=== PATIENT | female | born 1940 | race Caucasian/White ===

== ENCOUNTER → 2017-09-22 | Outpatient (CLI) | payer MEDICARE, OTHER ==
[~2017-09-22] MED LIST: AMLO-96 PO; AMLO2.5T74 PO; ASPI-1471 PO; FLU60SYR30 IM ONLY; METO25TA23 PO; OMEG-109 PO; PITA2TAB PO; TRIA10.8 NS; UBID100C9 PO
== END ==
LOC: LAB 11:27
PROVIDERS: ATTEND Surgery
DX: L85.9 Epidermal thickening, unspecified (principal)
CPT/HCPCS: 88305

== ENCOUNTER 2017-10-15 13:29 | Outpatient (RCR) | payer MEDICARE, OTHER ==
[2017-10-14 09:54] LABS: PLATELET COUNT, AUTOMATED 206 K/uL (150-450)
[2017-10-14 09:55] VITALS: BP 140/82
--- NOTE | 2017-10-15 13:06 | ONC Progress Note - NP.Halsey ---
Patient History Date of Service Oct 15, 2017 Reason For Visit/HPI Patient is a 77-year-old female who moved to [place] from [place] on 2016. 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 She has not been phlebotomized since she has moved to [place]. Previous cut off for phlebotomy was a hematocrit greater than 45%. Patient reports that she is having some increased shortness of breath related to exercise with activity and headaches as she wakes in the morning occasionally.She has experienced this since she moved from a lower altitude to a higher altitude. Patient previously was on oxygen therapy at night and then reports that approximately 2 years ago a repeat sleep study was completed and she no longer qualified for oxygen. Patient is interested in a repeat sleep study to see if she would qualify for night oxygen therapy. Patient reports that she has some joint aches in the left hip and left foot after exercising at the [facility]. She is using cold packs and Aleve and her symptoms are improving. She has fatigue which she rates an 8 out of 10 but believes that most of this is related to the discomfort in her left leg and hip. She denies any cough, sinus drainage, nausea or vomiting or bowel changes. Problem List (1) Erythrocytosis Oncology History Patient moved to [place] from [place] on February 28, 2017. She was found to have erythrocytosis when she was in [place]. Patient followed with an oncologist and as per patient she had a JAK2 mutation gene test done which came back negative. 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 Erythropoietin level was 10, within the normal range. She is also complaining of TIA in the past. She has also hypertension and hypercholesterolemia, but other than that her medical history is insignificant. She was started on a baby aspirin for her TIA. Medical History Family History: Diabetes mellitus (DM) MOTHER, , Age:80 FH: HTN (hypertension) MOTHER, , Age:80 FH: heart failure MOTHER, , Age:80 FH: multiple sclerosis FATHER, , Age:72 FH: pneumonia FATHER, , Age:72 FH: stroke MOTHER, , Age:80 TIAs MOTHER, , Age:80 Psychosocial History Social History The patient is a . She has three children. One of her daughters lives in [place], [place]. 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 She is a never smoker. She denies any abuse of alcohol or illicit drugs. Smoking History: No Smoking Status: Never Smoker Exposure to Second Hand Smoke?: Yes Medications and Allergies Active Scripts Amlodipine Besylate (AMLODIPINE BESYLATE) 2.5 Mg Tablet, 1 TAB PO QDAY, #90 TAB 0 Refills Prov:DANIEL HOLLOWAY MD 10/13/17 Metoprolol Succinate (METOPROLOL SUCCINATE) 25 Mg Tab.er.24h, 1 TAB PO QDAY, # 90 TAB Prov:DANIEL HOLLOWAY MD 10/13/17 Pitavastatin Calcium (LIVALO) 2 Mg Tablet, 1 TAB PO DAILY, #90 TAB 3 Refills Prov:DANIEL HOLLOWAY MD 04/14/17 Reported Medications Multivitamin With Minerals (MULTIPLE VITAMIN) 1 Each Tablet, 1 EACH PO DAILY, TAB 10/15/17 Vit C/Mell Ac/Lut/Copper/Znox (PRESERVISION LUTEIN SOFTGEL) 1 Each Capsule, 1 EACH PO DAILY, CAPSULE 10/15/17 Vit A/Vit C/Vit E/Zinc/Copper (PRESERVISION AREDS SOFTGEL) 1 Each Capsule, 1 EACH PO BID, CAPSULE 10/13/17 Ubidecarenone (CO Q-10) 100 Mg Capsule, 1 CAP PO QDAY, CAPSULE 07/14/17 Triamcinolone Acetonide (Nasacort) 10.8 Ml [place], 2 SPRAYS NS DAILY 03/26/17 [place]-3/Dha/Epa/Fish Oil (OMEGAMINT FISH OIL 750 MG SFGL) 1 Each Capsule, 1 CAP PO DAILY, CAPSULE 03/26/17 Aspirin (ASPIR 81) 81 Mg Tablet., 1 TAB PO QDAY, TAB 03/26/17 Allergies: Coded Allergies: Ulwmzpp-Ukw-Jpz Reductase Inhibitor (Verified Allergy, Unknown, GI DISTRESS, 03/26/17) myalgias codeine (Verified Allergy, Unknown, MENTAL STATUS CHANGES, 03/26/17) lisinopril (Verified Allergy, Unknown, 03/26/17) cough milk (Verified Allergy, Unknown, UNKNOWN, 03/26/17) Review of System/Physical Exam Review of Systems All Systems Reviewed/Normal: Yes, Except as Noted Respiratory: Positive for Shortness of Breath Hematologic: Positive for Fatigue Musculoskeletal: Positive for Muscle Pain, Positive for Joint Pain, Positive for Other (reported discomfort in the left greater toe. Previously noted to have edema but this is resolved. Patient has been using ice and took Aleve yesterday) Physical Exam Vital Signs Temperature: 98.2 Pulse: 82 BP Systolic: 140 BP Diastolic: 82 Respiratory Rate: 16 O2 SAT: 93 O2 Delivery: Height (inches) 65.50 Weight lb: Weight oz: Weight Kg (Av): Pain: 0 ECOG Score: 1 General: Stable, Well Developed, Well Nourished, Not In Acute Distress HEENT: No Trauma Neck: Supple Lungs: Clear to Auscultation Heart: Regular Rate, Regular Rhythm, No Gallops Abdomen: Soft and Nontender, No Hepatosplenomegaly Extremities: No Cyanosis, No Clubbing, No Edema, Other (mild erythema in the left foot noted between the greater toe. No tenderness with palpation.) Psychiatric: Mood appears normal, Affect appears normal Skin: No Skin Rashes, No Bruising, No Purpura Diagnostic Studies Diagnostic Studies Laboratory Other risks Jules Hoffman level is currently pending Laboratory Tests 10/14/17 09:47 Laboratory Tests 10/14/17 09:47: White Blood Count 7.1, Red Blood Count 5.27, Hemoglobin 17.2, Hematocrit 48.8, Mean Corpuscular Volume 92.6, Mean Corpuscular Hemoglobin 32.7, Mean Corpuscular Hemoglobin Concent 35.3, Red Cell Distribution Width 14.1, Platelet Count 206, Mean Platelet Volume 7.9, Neutrophils (%) (Auto) 64.3, Lymphocytes (% ) (Auto) 22.6, Monocytes (%) (Auto) 7.6, Eosinophils (%) (Auto) 3.2, Basophils ( %) (Auto) 2.3, Nucleated RBC Relative Count (auto) 0.1, Neutrophils # (Auto) 4.6 , Lymphocytes # (Auto) 1.6, Monocytes # (Auto) 0.5, Eosinophils # (Auto) 0.2, Basophils # (Auto) 0.2, Nucleated RBC Absolute Count (auto) 0.00 Assessment and Plan Assessment & Plan 1. Erythrocytosis could be secondary given that her erythropoietin level was previously normal at 10. Today's level is currently pending Her JAK2 mutation for V617F mutation and Exon 12 mutation came back negative. Her last hematocrit was 51.5% when patient consulted with Dr. Barba. He plans to phlebotomize if the hematocrit is above 55%. Today's level is 48.8. There is no indication for phlebotomy today. She will be seen every three months with a CBC. Labs were reviewed in detail with patient today. 2. Hypertension, on treatment. 3. Hypercholesterolemia, on treatment. 4. History of transient ischemic attack on baby aspirin. 5. Prior history of oxygen therapy at night, discontinued 2 years ago. Since then patient has moved to a higher altitude and his having mild shortness of breath and headaches when she wakes in the morning. She is interested in having the sleep study completed for further evaluation of oxygen therapy need. Patient 's hematocrit of 48.8 may also improve as this could be a partial cause of secondary erythrocytosis. I will visit with patient after sleep study is completed. PLAN 1. Continue followup after sleep study 2. Patient to return in three months with CBC. 3. Consider phlebotomy if the hematocrit is above 55%. 4. Continue baby aspirin 81 mg daily. 5. Patient is to contact us for any new concerns or complaints. I personally spent a total of 30 minutes. Of that 25 minutes was counseling/ coordination of patient's care. See my note above for details. Copies to: DANIEL HOLLOWAY MD, NANCY J [employer]-BC, ONC Oct 15, 2017 13:06
[~2017-10-15 13:29] MED LIST changes: +VIT1CAPS34 PO
[2017-10-15 13:43] VITALS: BP 118/74
[2017-10-15] MEDS ORDERED: MULT-1335 PO (13:49)
[2017-10-15] MEDS ORDERED: VIT1CAPS39 PO (13:49)
[2017-10-19] MEDS ORDERED: METO25TA23 PO (09:48)
[2017-10-27] MEDS ORDERED: OXYGENHOME INH (08:56)
== END 2017-11-25 15:03 | disposition home or self-care (01) ==
LOC: ONC 13:29
PROVIDERS: ATTEND Internal Medicine Hematology
DX: D75.1 Secondary polycythemia (principal); I10 Essential (primary) hypertension; E78.00 Pure hypercholesterolemia, unspecified; Z86.73 Personal history of transient ischemic attack (TIA), and cerebral infarction without residual deficits; R53.83 Other fatigue; R06.02 Shortness of breath; Z79.899 Other long term (current) drug therapy; Z79.82 Long term (current) use of aspirin
CPT/HCPCS: 36415; 82668; 85025; G0463; 99212

== ENCOUNTER 2018-02-18 14:30 | Outpatient (RCR) | payer MEDICARE, OTHER ==
[~2018-02-18 14:30] MED LIST changes: +ALBU8.5H IH; +BENZ200C15 PO; +MULT-1335 PO; +OXYGENHOME INH; +ROS10 PO; +VIT1CAPS39 PO
[2018-02-18 14:33] VITALS: BP 119/73
[2018-02-18 14:44] LABS: PLATELET COUNT, AUTOMATED 206 K/uL (150-450)
--- NOTE | 2018-02-18 17:24 | Oncology Note ---
EVALUATION~DATE~& TIME: 02/18/18 at 1540 PRIMARY CARE PHYSICIAN: Chief complaint: Cough and fevers at home x 4 days DIAGNOSIS: Atypical PNA ( presumed) HEM/ONC History Mrs. gillian Hankins is a 77-year-old female who has Erythrocytosis. moved to [place] from [place] on February 28, 2017. The patient was found to have erythrocytosis when she was in [place]. Patient has been referred to the oncologist and as per patient she had a JAK2 mutation gene test done which came back negative. She is also complaining of TIA in the past. She has also hypertension and hypercholesterolemia, but other than that her medical history is insignificant. She wants to establish care for her erythrocytosis. She is currently taking a baby aspirin for her TIA. JAK2 mutation Exon 12 was negative when it was done in [place]. 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 Erythropoietin level was 10, within the normal range. HPI Mrs. Gillian Hankins is a 77-year-old female who has Erythrocytosis. Patient presented to the cancer center for management of her erythrocytosis, appearing ill looking, temp of 99.8F, Pulse of 91. patient reports that she has been having fevers, productive cough with yellow and white sputum since 02/15 . She reports minimal oral intake, and fatigue. Patient was started on nighttime 2L Oxygen supplement in October 2017. She reports that the supplemental oxygen has made her feel better.Patient denies cardiac related chest pain, no abdominal pain, no changes in bowel and bladder pattern, or recent hospitalization. significant past medical history of Hypertension, Hypercholesterolemia, TIA in 2014.. Diagnostic tests & Reports Reviewed on [employer] WBC 7.7; Hbg 16.7; Hct; 48.1; Plt;206 TIBC 246; T.Bili 1.4 PAST MEDICAL HISTORY 1. Erythrocytosis. 2. Hypercholesterolemia. 3. Hypertension. 4. TIA. PAST SURGICAL HISTORY 1. Tonsillectomy. 2. Tubal ligation. 3. Hysterectomy. 4. Bilateral cataract surgery. 5. Resection of melanoma from the back of the neck. FAMILY HISTORY Father had skin cancer. SOCIAL HISTORY The patient is a . She has three children. One of her daughters lives in [place], [place]. 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 She never smoke. She denies any abuse of alcohol or illicit drugs. CURRENT MEDICATIONS 1. Nasacort 10.8 mL spray, two sprays daily. 2. [place]-3/fish oil/DHA-EPA. 3. OmegaMint fish oil 750 mg soft gel one daily. 4. Aspirin 81 mg daily. 5. Metoprolol 25 mg daily. 6. Amlodipine 5 mg daily. 7. Livalo 2 mg tablet daily. ALLERGIES STATINS which cause muscle pain and stomach pain, LISINOPRIL which causes cough , CODEINE which makes her dopey. Review of System CONSTITUTION: + fevers+ poor oral intake ,+fatigue EYES: No blurred vision, no double vision ENT: no mouth soreness, trouble swallowing, neck masses RESPIRATORY:+ coughing CARDIOVASCULAR: Denies cardiac type chest pain, palpitations, leg edema GI: denies trouble swallowing, indigestion, abdominal pain, diarrhea, constipation, : No blood in the urine, no urinary urgency/frequency, no dysuria, no MUSCULOSKELETAL: + muscle aches, NEURO: denies headaches, dizziness, neuropathy, focal weakness SKIN: denies bruising, rashes, changing or suspicious lesions, HEMATOLOGY: denies spontaneous bleeding, denies non-palpable nodes PSYCH: denies mood changes, depression, anxiety Physical Exam Vital Signs Temperature: 99.8 Pulse: 91 BP Systolic: 119 BP Diastolic: 73 Respiratory Rate: O2 SAT: 89% RA ; 95% nasal canula 2L O2 Delivery: Height (inches) Weight lb: Weight oz: Weight Kg (Av): Pain: 0 PERFORMANCE STATUS: ECOG O- fully active, able to carry on all pre-disease performance w/o restriction GENERAL: ill looking ORAL: mucosa moist without lesions, pharynx not injected EYES: no icterus, no pale conjunctivae, EOMI, PERRLA NECK: supple, no masses, no palpable lymph nodes LUNGS: diminished, auscultation bilaterally, fine crackles Right lower lobe CVS: regular rate, rhythm, nl s1, s2, no murmurs ABD: normal bowel sounds, soft non tender, non-distended, no hepatomegaly, no splenomegaly, no masses EXTREMITIES: no edema, no cyanosis NEURO: alert, appropriate, motor grossly normal, sensory grossly non focal, and cranial nerves grossly intact NODES: no cervical, supraclavicular, axillary, inguinal adenopathy SKIN: no ecchymosis, petechiae, no open wounds, no itchiness. PSYCH: normal mood and affect, good judgment and insight. Assessment & Plan ASSESSMENT Mrs. Gillian Hankins is a 77-year-old female who has Erythrocytosis. HTN, Hyperlipidemia and history of TIA in 2014. 1. Erythrocytosis was thought to be secondary in nature given that her erythropoietin level value was normal at 10, and her JAK2 mutation for V617F mutation and Exon 12 mutation came back negative. Labs were reviewed and hematocrit is 48.1% today. 2. presumed Atypical PNA- Patient to be transferred to the ER for work up and evaluation. SBAR given to Bethany DIETRICH. 3. Hypertension, on treatment. 4. Hypercholesterolemia, on treatment. 5. History of transient ischemic attack on baby aspirin. PLAN 1. Consider Therapeutic Phlebotomy with a Hematocrit >/=50% 2. Patient will return for follow-up after Dc from ER 3. Continue baby aspirin 81 mg daily. 4. will check Erythropoietin levels 5. Patient is to contact us for any new concerns or complaints. TIME SPENT: 30 minutes > 25 minutes includes but not limited to discussion, counselling and co-ordination~ of care. Discussion with other health care providers, record review, review of lab work, diagnostic tests. Thank you for the opportunity to be involved in the care of Billing Level: 4 Return sick visit MARGRET SNOWDEN, ONC Feb 18, 2018 17:24
[2018-02-18] MEDS ORDERED: PRED20TA6 PO (18:01)
[2018-02-18] MEDS ORDERED: AZIT-1 PO (18:01)
== END 2018-02-19 09:31 | disposition home or self-care (01) ==
LOC: SPU 14:30
PROVIDERS: ATTEND Internal Medicine Hematology
DX: D75.1 Secondary polycythemia (principal); I10 Essential (primary) hypertension; E78.00 Pure hypercholesterolemia, unspecified; Z86.73 Personal history of transient ischemic attack (TIA), and cerebral infarction without residual deficits; R53.83 Other fatigue; Z79.899 Other long term (current) drug therapy; Z79.82 Long term (current) use of aspirin; E78.5 Hyperlipidemia, unspecified; R05 Cough
CPT/HCPCS: 36415; 85025; G0463; 99212

== ENCOUNTER 2018-02-18 16:28 | Emergency (ER) | payer MEDICARE, OTHER ==
--- NOTE | 2018-02-18 16:35 | ER Report ---
History and Physical Time Seen By MD: 16:35 HPI/ROS CHIEF COMPLAINT: Cough, shortness of breath, sputum change HISTORY OF PRESENT ILLNESS: Patient is a 77-year-old female here with complaints of cough, sputum change, shortness breath for the past several days. Patient was seen today in oncology clinic where she was evaluated for erythrocytosis and was sent to the emergency Department due to concern for pneumonia. Labs were completed in clinic and were found to be unremarkable. The patient did not have a leukocytosis. At baseline, the patient is on oxygen at night only however was placed on supplemental oxygen due to oxygen saturations in the mid 80s. Patient denies prior history of underlying lung disease however she does report using an old inhaler with some relief of symptoms. Patient is afebrile at time of evaluation for she reports that she usually has a low temperature. Patient does have an intermittent headache, blurred vision which is not new for this patient. Denies hematuria, melena, chest pain. REVIEW OF SYSTEMS: Respiratory: + cough, + dyspnea. Cardiovascular: No chest pain, no palpitations. Gastrointestinal: No vomiting, no abdominal pain. Musculoskeletal: No back pain. Neuro: + intermittent baseline headache and blurry vision Allergies: Coded Allergies: Ohsqlwl-Deo-Jas Reductase Inhibitor (Verified Allergy, Unknown, GI DISTRESS, 02/18/18) myalgias codeine (Verified Allergy, Unknown, MENTAL STATUS CHANGES, 02/18/18) lisinopril (Verified Allergy, Unknown, 02/18/18) cough milk (Verified Allergy, Unknown, UNKNOWN, 02/18/18) Home Meds Active Scripts Prednisone (PREDNISONE) 20 Mg Tablet, 40 MG PO QDAY for 4 Days, #8 TAB Prov:MANISH CHINO DO 02/18/18 Azithromycin (ZITHROMAX) 250 Mg Tablet, 1 TAB PO QDAY for 4 Days, #4 TAB Prov:MANISH CHINO S DO 02/18/18 Metoprolol Succinate (METOPROLOL SUCCINATE) 25 Mg Tab.er.24h, 1 TAB PO BID, #90 TAB 3 Refills Prov:DANIEL HOLLOWAY MD 01/12/18 Benzonatate (BENZONATATE) 200 Mg Capsule, 1 CAP PO TID Y for cough, #15 CAP 0 Refills Prov:DANIEL HOLLOWAY MD 12/02/17 Albuterol Sulfate 90 Mcg/Act (PROAIR HFA 90 MCG/ACT) 8.5 Gm Hfa.aer.ad, 2 PUFF IH Q4-6H Y for cough, tightness in chest, #1 INHALER 0 Refills Prov:DANIEL HOLLOWAY MD 12/02/17 Rosuvastatin Calcium (CRESTOR) 10 Mg Tab, 1 TAB PO QDAY, #90 TAB 3 Refills Prov:DANIEL HOLLOWAY MD 12/02/17 Amlodipine Besylate (AMLODIPINE BESYLATE) 2.5 Mg Tablet, 1 TAB PO QDAY, #90 TAB 0 Refills Prov:DANIEL HOLLOWAY MD 10/13/17 Reported Medications Oxygen (OXYGEN) Inha, 2 L INH HS 10/27/17 Multivitamin With Minerals (MULTIPLE VITAMIN) 1 Each Tablet, 1 TAB PO QDAY 10/15/17 Vit A/Vit C/Vit E/Zinc/Copper (PRESERVISION AREDS SOFTGEL) 1 Each Capsule, 1 CAP PO BID 10/13/17 Ubidecarenone (CO Q-10) 100 Mg Capsule, 1 CAP PO QDAY 07/14/17 [place]-3/Dha/Epa/Fish Oil (OMEGAMINT FISH OIL 750 MG SFGL) 1 Each Capsule, 1 CAP PO QDAY 03/26/17 Aspirin (ASPIR 81) 81 Mg Tablet., 1 TAB PO QDAY 03/26/17 Past Medical/Surgical History TIA, irregular heartbeat, hypertension, hyperlipidemia, oxygen dependent at night, erythrocytosis Hx Smoking: No Smoking Status: Never Smoker Exposure to Second Hand Smoke?: Yes Constitutional Vital Sign - Last 24 Hours 02/18/18 02/18/18 02/18/18 02/18/18 16:32 16:50 16:50 16:56 Temp 98.0 Pulse 88 73 Resp 22 18 B/P (MAP) 142/86 Pulse Ox 92 94 96 O2 Delivery Nasal Cannula Nasal Cannula Nasal Cannula O2 Flow Rate 1.5 1.0 02/18/18 02/18/18 16:56 18:25 Pulse 78 78 Resp 18 18 B/P (MAP) 136/80 (98) Pulse Ox 91 O2 Delivery Room Air Physical Exam General Appearance: The patient is alert, has no immediate need for airway protection and no current signs of toxicity. NAD Eyes: Pupils equal and round no injection. Respiratory: Chest is non tender, lungs are clear to auscultation. Cardiac: regular rate and irregular rhythm Gastrointestinal: Abdomen is soft and non tender, no masses, bowel sounds normal. Musculoskeletal: Neck: Neck is supple and non tender. Extremities have full range of motion and are non tender. Skin: No rashes or lesions. DIFFERENTIAL DIAGNOSIS: After history and physical exam differential diagnosis was considered for shortness of breath including but not limited to pulmonary infectious process, COPD, asthma, pulmonary embolus and congestive heart failure. Medical Decision Making EKG/Imaging Imaging 2 VIEWS CHEST INDICATION: Shortness of breath. COMPARISON: None available FINDINGS: Cardiomediastinal silhouette and pulmonary vessels within normal limits. Electronic device overlying the anterior chest. There is no focal infiltrate or lobar consolidation. There is no pneumothorax or pleural effusion. No nodule. Upper abdomen is unremarkable. No acute bony abnormality. IMPRESSION: 1. No acute cardiopulmonary process. ED Course/Re-evaluation ED Course Patient is a 77-year-old female here for complaints of shortness breath, cough for the past several days. She was sent from clinic for evaluation of suspected pneumonia. Patient was placed on supplemental oxygen due to low oxygen sats in the mid 80s. She does utilize oxygen at nighttime only. Patient was given a nebulizer treatment. X-ray imaging showed no acute consolidation. Due to SOB, increased oxygen demand and response to nebulizer therapy, decision was made to treat the patient for community acquired pneumonia. Patient was given a dose of prednisone and azithromycin and scripts for both for 4 days. She was well- appearing at time of discharge and in no acute distress. Patient was advised to follow-up with her PCP in the next several days. Decision to Disposition Date: Feb 18, 2018 Decision to Disposition Time: 18:02 Depart Departure Latest Vital Signs Vital Signs Date Time Temp Pulse Resp B/P (MAP) Pulse Ox O2 Delivery O2 Flow Rate FiO2 02/18/18 18:25 78 18 136/80 (98) 91 Room Air 02/18/18 16:56 1.0 02/18/18 16:32 98.0 Impression: Primary Impression: Pneumonia Condition: Improved Disposition: HOME OR SELF-CARE Referrals: DANIEL HOLLOWAY MD (PCP) New Scripts Prednisone (PREDNISONE) 20 Mg Tablet 40 MG PO QDAY for 4 Days, #8 TAB Prov: MANISH CHINO DO 02/18/18 Azithromycin (ZITHROMAX) 250 Mg Tablet 1 TAB PO QDAY for 4 Days, #4 TAB Prov: MANISH CHINO DO 02/18/18 Patient Instructions: Community Acquired Pneumonia (ED) Additional Instructions: Please take 2 tablets of prednisone daily for the next 4 days. Please take one tablet of azithromycin daily for the next 4 days. Please take your inhaler every 4-6 hours 2 puffs as needed for shortness of breath. Please use your oxygen to maintain oxygen levels of greater than 88%. Please follow up with your family doctor in the next 2 days. Please return promptly if you develop worsening shortness breath, cough, fevers, chest pain. MANISH CHINO DO Feb 18, 2018 16:35
[2018-02-18] MEDS ORDERED: ALBUTEROL 2.5 MG/3 ML NEB NEB ONE (16:45)
[2018-02-18] MEDS ORDERED: AZITHROMYCIN 250 MG TAB PO ONE (17:55)
[2018-02-18] MEDS ORDERED: predniSONE 20 MG TAB PO ONE (17:55)
[2018-02-18] MEDS ORDERED: PRED20TA6 PO (18:01)
[2018-02-18] MEDS ORDERED: AZIT-1 PO (18:01)
--- NOTE | 2018-02-18 18:02 | RADIOLOGY IMAGING REPORT ---
FACILITY: [facility] PATIENT NAME: Nhi Chua : 1940 MR: [id number] V: [id number] EXAM DATE: ORDERING PHYSICIAN: MANISH CHINO TECHNOLOGIST: Location: [facility] Patient: Nhi Chua : 1940 Visit/Account:[id number] Date of Sevice: 02/18/2018 2 VIEWS CHEST INDICATION: Shortness of breath. COMPARISON: None available FINDINGS: Cardiomediastinal silhouette and pulmonary vessels within normal limits. Electronic device overlying the anterior chest. There is no focal infiltrate or lobar consolidation. There is no pneumothorax or pleural effusion. No nodule. Upper abdomen is unremarkable. No acute bony abnormality. IMPRESSION: 1. No acute cardiopulmonary process. Report Dictated By: Campbell Duran at 02/18/2018 5:56 PM Report E-Signed By: Campbell Duran at 02/18/2018 5:57 PM WSN:[id number]
[2018-02-18 18:25] VITALS: BP 136/80
== END 2018-02-18 18:27 | disposition home or self-care (01) ==
LOC: ER 16:30
DX: J18.9 Pneumonia, unspecified organism (principal)
CPT/HCPCS: 71046; 94640; 99283; J7512; J7613; Q0144

== ENCOUNTER → 2018-03-09 | Outpatient (CLI) | payer MEDICARE, OTHER ==
[~2018-03-09] MED LIST changes: +AZIT-1 PO; +FLUT16SP19 NS; +PRED20TA6 PO
--- NOTE | 2018-03-09 15:22 | RADIOLOGY IMAGING REPORT ---
FACILITY: [facility] [place] PATIENT NAME: Nhi Chua : 1940 MR: [id number] V: [id number] EXAM DATE: ORDERING PHYSICIAN: DANIEL HOLLOWAY TECHNOLOGIST: Location: [facility] Patient: Nhi Chua : 1940 Visit/Account:[id number] Date of Sevice: 03/09/2018 DEXA Scan Clinical history: screening. Comparison: None. LUMBAR SPINE: The bone mineral density (BMD) measured from L1-L4 correlates with a Z-score of 0.8 and a T-score of -0.9 which is within normal range as defined by the World Health Organization. The corresponding ris k of fracture in the lumbar spine is not increased compared with a young adult reference population. HIP: Bone mineral density (BMD) measured in the Left total hip region correlates with a Z-score of 0.8 and a T-score of -0.9. The T-score of the femoral neck is -1.5. The lower of the two T scores is osteopenic which is defined as defined by the World Health Organization. The corresponding risk of fracture in the hip is is approximately double compared wit h a young adult reference population. Bone mineral density (BMD) measured in the Left Femoral Neck region measures 0.826 g/cm?. Impression: 1. Lumbar spine: Within normal range. 2. Left Total Hip: Osteopenic. The next DEXA scan of this patient should include the following sites: L1-L4 and Left hip. FRAX? WHO Fracture Risk Assessment Tool link: <http://www.shef.ac.uk/FRAX/tool.jsp?locationValue=9> PLEASE NOTE: 1) The World Health Organization defines low BMD as follows: T-score Normal > -1 Osteopenia < -1 and > -2.5 Osteoporosis < -2.5 without fractures Established osteoporosis < -2.5 with fractures 2) In general, you may wish to consider: Diagnosis Treatment Follow-up DEXA Normal BMD Prevention 2-3 years Osteopenia Prevention/therapy 1-2 years Osteoporosis Therapy Yearly 3) Fracture risk estimated from the T-score is more accurate for vertebral fractures (often spontane ous) than for hip fractures. Report Dictated By: Corky Willett MD at 03/09/2018 3:16 PM Report E-Signed By: Corky Willett MD at 03/09/2018 3:18 PM WSN:[id number]
--- NOTE | 2018-03-18 16:18 | RADIOLOGY IMAGING REPORT ---
[facility] PATIENT NAME: LISA GREGORY : [id number] MR: [id number] V: [id number] EXAM DATE: [id number] ORDERING PHYSICIAN: DANIEL HOLLOWAY TECHNOLOGIST: Ayse Pelaez PROCEDURE:BILATERAL DIGITAL SCREENING MAMMOGRAM WITH CAD ASSISTED INTERPRETATION & 3D TOMOSYNTHESIS COMPARISON:Prior mammograms 12/29/16, 10/02/15. INDICATIONS:SCREENING FINDINGS: Breast parenchyma is heterogeneously dense. There is a stable ovoid benign appearing mass in the anterior Right breast. Benign appearing vascular & other calcifications on both sides. No new mammographic finding concerning for malignancy. DIAGNOSTIC CATEGORY 2-BENIGN FINDING. RECOMMENDATIONS: ROUTINE MAMMOGRAM AND CLINICAL EVALUATION IN 1 YEAR. IMPRESSION: BIRADS 2: Benign finding. Dictated by: Shawn Light on 03/18/2018 at 8:50 Transcribed by: CHRISTAL on 03/18/2018 at 15:28 Approved by: Shawn Light on 03/18/2018 at 16:17 [facility]
== END ==
LOC: MAMO 07:04
PROVIDERS: ATTEND Internal Medicine
DX: Z13.820 Encounter for screening for osteoporosis (principal); Z12.31 Encounter for screening mammogram for malignant neoplasm of breast; Z78.0 Asymptomatic menopausal state; M81.0 Age-related osteoporosis without current pathological fracture; R92.1 Mammographic calcification found on diagnostic imaging of breast
CPT/HCPCS: 77063; 77067; 77080

== ENCOUNTER → 2018-03-11 | Outpatient (CLI) | payer MEDICARE, OTHER | LOC: LAB 09:16 | PROVIDERS: ATTEND Nurse Practitioner | DX: L81.4 Other melanin hyperpigmentation (principal) | CPT/HCPCS: 88305 ==

== ENCOUNTER 2018-03-19 13:28 | Outpatient (RCR) | payer MEDICARE, OTHER ==
[2018-03-19 13:36] VITALS: BP 135/71
--- NOTE | 2018-03-19 17:41 | ONCOLOGY FOLLOW UP NOTE ---
EVENT DATE: March 19, 2018 DIAGNOSES 1. Erythrocytosis. 2. Hypertension. 3. Hypercholesterolemia. 4. History of transient ischemic attack. CHIEF COMPLAINT Patient is here today for followup of her erythrocytosis. HEMATOLOGY HISTORY Patient is a 77-year-old female who moved to [place] from [place] on February 28, 2017. The patient was found to have erythrocytosis when she was in [place]. Patient has been referred to the oncologist and as per patient she had a JAK2 mutation gene test done which came back negative. She is also complaining of TIA in the past. She has also hypertension and hypercholesterolemia, but other than that her medical history is insignificant. She wants to establish care for her erythrocytosis. She is currently taking a baby aspirin for her TIA. JAK2 mutation Exon 12 was negative when it was done in [place]. 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 Erythropoietin level was 10, within the normal range. HISTORY OF PRESENT ILLNESS Patient is here today for followup of her erythrocytosis. She is using oxygen at home now. She is complaining of some nasal discharge, cough with expectoration and shortness of breath. She has muscle aches sometimes. She is weak, tired and fatigued sometimes. PAST MEDICAL HISTORY 1. Erythrocytosis. 2. Hypercholesterolemia. 3. Hypertension. 4. TIA. PAST SURGICAL HISTORY 1. Tonsillectomy. 2. Tubal ligation. 3. Hysterectomy. 4. Bilateral cataract surgery. 5. Resection of melanoma from the back of the neck. FAMILY HISTORY Father had skin cancer. SOCIAL HISTORY The patient is a . She has three children. One of her daughters lives in [place], [place]. 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 She is a never smoker. She denies any abuse of alcohol or illicit drugs. CURRENT MEDICATIONS 1. Nasacort 10.8 mL spray, two sprays daily. 2. [place]-3/fish oil/DHA-EPA. 3. OmegaMint fish oil 750 mg soft gel one daily. 4. Aspirin 81 mg daily. 5. Metoprolol 25 mg daily. 6. Amlodipine 5 mg daily. 7. Livalo 2 mg tablet daily. ALLERGIES STATINS which cause muscle pain and stomach pain, LISINOPRIL which causes cough , CODEINE which makes her dopey. REVIEW OF SYSTEMS CONSTITUTIONAL: No appetite or weight change. No fever, chills or sweating. No recent infection. HEENT: Ears: No tinnitus or hearing problem. Nose: She has nasal discharge. Throat: No sore throat or mouth ulcers. Eyes: No diplopia or visual changes. RESPIRATORY: She has cough with expectoration and shortness of breath. CARDIOVASCULAR: No chest pain, orthopnea, or paroxysmal nocturnal dyspnea (PND) . No edema. No palpitations. GASTROINTESTINAL: She has constipation. GENITOURINARY: No hematuria or dysuria. MUSCULOSKELETAL: She has muscle pain. NEUROLOGICAL: She has occasional headache. HEMATOLOGICAL: She is weak, tired and fatigued. PSYCHIATRIC: No anxiety or depression. PHYSICAL EXAMINATION GENERAL: Looks stable. Well-developed, well-nourished, and in no acute distress. VITAL SIGNS: Blood pressure 135/71, pulse 85 per minute, respirations 16 per minute, temperature 97, pulse ox 93% on room air. HEENT: Head: Atraumatic. No sinus tenderness to palpation. Eyes: No icterus or conjunctivitis. Mouth and throat: No oral thrush or mucositis. NECK: Supple. No cervical or supraclavicular lymphadenopathy. LUNGS: Clear to auscultation and percussion bilaterally. HEART: Regular rate and rhythm. No gallops, murmurs, clicks or rubs. ABDOMEN: Soft and lax. No tenderness. No hepatosplenomegaly. No masses. EXTREMITIES: No cyanosis, clubbing or edema. LYMPHATICS: No peripheral lymphadenopathy. NEUROLOGICAL: Conscious, alert and oriented times three. No focal motor or sensory deficits. PSYCHIATRIC: Mood and affect appear normal. SKIN: No skin rash, bruise or purpuric eruption. DIAGNOSTIC DATA CBC showed white count 7.7, hemoglobin 16.7, hematocrit 48.1, platelets 206, 000. ASSESSMENT 1. 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 Her current hematocrit is 48.1 which is improving gradually. Patient is using oxygen at home now and this could explain why her hematocrit is getting better currently. I am planning to repeat her CBC every three months. I will see her in six months and I will phlebotomize 500 mL of blood if the hematocrit is above 55%. 2. Hypertension, on treatment. 3. Hypercholesterolemia, on treatment. 4. History of transient ischemic attacks, on baby aspirin. PLAN 1. Continue followup. 2. Patient to return in six months with CBC. 3. Check CBC in three months. 4. Consider phlebotomy if hematocrit above 55%. 5. Continue baby aspirin 81 mg daily. 6. Patient is to contact us for any new concerns or complaints. ARACELI
[2018-03-25] MEDS ORDERED: METO25TA23 PO (11:26)
[2018-03-25] MEDS ORDERED: PITA2TAB PO (11:26)
[2018-03-25] MEDS ORDERED: CALC-864 PO (11:26)
== END 2018-03-25 13:58 | disposition home or self-care (01) ==
LOC: ONC 13:28
PROVIDERS: ATTEND Internal Medicine Hematology
DX: D75.1 Secondary polycythemia (principal); I10 Essential (primary) hypertension; E78.00 Pure hypercholesterolemia, unspecified; Z86.73 Personal history of transient ischemic attack (TIA), and cerebral infarction without residual deficits; R53.83 Other fatigue; R06.02 Shortness of breath; Z99.81 Dependence on supplemental oxygen; Z79.82 Long term (current) use of aspirin
CPT/HCPCS: 99212

== ENCOUNTER → 2018-08-06 | Outpatient (CLI) | payer MEDICARE, OTHER ==
[~2018-08-06] MED LIST changes: +AMLO-111 PO; -AMLO-96 PO; -AMLO2.5T74 PO; +AMLO2.5T76 PO; +CALC-864 PO
== END ==
LOC: RESP 03:17
PROVIDERS: ATTEND Internal Medicine
DX: E78.00 Pure hypercholesterolemia, unspecified (principal); I49.1 Atrial premature depolarization; I10 Essential (primary) hypertension
CPT/HCPCS: 93017

== ENCOUNTER → 2018-08-19 | Outpatient (RCR) | payer MEDICARE, OTHER ==
[2018-05-21 08:52] VITALS: BP 138/73
[2018-05-21 09:09] LABS: PLATELET COUNT, AUTOMATED 195 K/uL (150-450)
[2018-08-12 08:29] LABS: PLATELET COUNT, AUTOMATED 196 K/uL (150-450)
[2018-08-12 08:43] VITALS: BP 124/68
--- NOTE | 2018-08-19 22:07 | [facility] ONCOLOGY NOTE ---
EVENT DATE: August 19, 2018 DIAGNOSES 1. Erythrocytosis. 2. Hypertension. 3. Hypercholesterolemia. 4. History of transient ischemic attack. CHIEF COMPLAINT Patient is here today for followup of her erythrocytosis. HEMATOLOGY HISTORY Patient is a 78-year-old female who moved to [place] from [place] on February 28, 2017. The patient was found to have erythrocytosis when she was in [place]. Patient had been referred to an oncologist, and as per patient, she had a JAK2 mutation gene test done which came back negative. She is also complaining of TIA in the past. She has also hypertension and hypercholesterolemia, but other than that, her medical history is insignificant. She wants to establish care for her erythrocytosis. She is currently taking a baby aspirin for her TIA. JAK2 mutation exon 12 was negative when it was done in [place]. 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 Erythropoietin level was 10, within the normal range. HISTORY OF PRESENT ILLNESS Patient is here today for followup of her erythrocytosis. She is doing fine currently. She has some cough with expectoration and shortness of breath. She has alternating diarrhea and constipation. She has pain in her hips. She has occasional headache. She is weak, tired, and fatigued. PAST MEDICAL HISTORY 1. Erythrocytosis. 2. Hypercholesterolemia. 3. Hypertension. 4. TIA. PAST SURGICAL HISTORY 1. Tonsillectomy. 2. Tubal ligation. 3. Hysterectomy. 4. Bilateral cataract surgery. 5. Resection of melanoma from the back of the neck. FAMILY HISTORY Father had skin cancer. SOCIAL HISTORY The patient is a . She has three children. One of her daughters lives in [place], [place]. 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 She is a never smoker. She denies any abuse of alcohol or illicit drugs. CURRENT MEDICATIONS 1. Nasacort 10.8 mL spray, two sprays daily. 2. [place]-3/fish oil/DHA-EPA. 3. OmegaMint fish oil 750 mg soft gel one daily. 4. Aspirin 81 mg daily. 5. Metoprolol 25 mg daily. 6. Amlodipine 5 mg daily. 7. Livalo 2 mg tablet daily. ALLERGIES STATINS which cause muscle pain and stomach pain, LISINOPRIL which causes cough, CODEINE which makes her dopey. REVIEW OF SYSTEMS CONSTITUTIONAL: No appetite or weight change. No fever, chills, or sweating. No recent infection. HEENT: Ears: No tinnitus or hearing problem. Nose: No nasal discharge or epistaxis. Throat: No sore throat or mouth ulcers. Eyes: No diplopia or visual changes. RESPIRATORY: She has cough with expectoration and shortness of breath. No hemoptysis. CARDIOVASCULAR: No chest pain, orthopnea, or paroxysmal nocturnal dyspnea (PND). No edema. No palpitations. GASTROINTESTINAL: No nausea or vomiting. She has alternating diarrhea and constipation. No change in bowel movements. No heartburn or swallowing difficulties. No abdominal pain. No jaundice. No hematemesis, melena, or rectal bleeding. GENITOURINARY: No hematuria or dysuria. MUSCULOSKELETAL: She has pain in her hips. NEUROLOGICAL: No tingling or numbness in the hands or feet. She has occasional headache. No convulsions. HEMATOLOGIC/LYMPHATIC: No bleeding or easy bruising. She is weak, tired, and fatigued. No enlarged lymph nodes. SKIN: No skin rash or lumps. PSYCHIATRIC: No anxiety or depression. PHYSICAL EXAMINATION GENERAL: Looks stable. Well developed, well nourished, and in no acute distress. VITAL SIGNS: Pulse is 46 per minute, respirations 16 per minute, temperature 98.4, pulse ox 91]% on room air. HEENT: Head: Atraumatic. No sinus tenderness to palpation. Eyes: No icterus or conjunctivitis. Mouth and throat: No oral thrush or mucositis. NECK: Supple. No cervical or supraclavicular lymphadenopathy. LUNGS: Clear to auscultation and percussion bilaterally. HEART: Regular rate and rhythm. No gallops, murmurs, clicks, or rubs. ABDOMEN: Soft and lax. No tenderness. No hepatosplenomegaly. No masses. EXTREMITIES: No cyanosis, clubbing, or edema. LYMPHATICS: No peripheral lymphadenopathy. NEUROLOGICAL: Conscious, alert, and oriented times three. No focal motor or sensory deficits. PSYCHIATRIC: Mood and affect appear normal. SKIN: No skin rash, bruise, or purpuric eruption. DIAGNOSTIC DATA CBC showed white count 6.1, hemoglobin 17, hematocrit 49.6, platelets 196,000. ASSESSMENT 1. 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 Her current hematocrit is 49.6%. There is no indication for phlebotomy. I will consider phlebotomy if her hematocrit is above 55%. I am planning to see her again in six months with CBC at that time. 2. Hypertension, on treatment. 3. Hypercholesterolemia, on treatment. 4. History of transient ischemic attack, on baby aspirin. PLAN 1. Continue followup. 2. Patient to return in six months with CBC. 3. Consider phlebotomy if hematocrit above 55%. 4. Continue baby aspirin 81 mg daily. 5. Patient is to contact us for any new concern or complaints. [facility]
== END ==
LOC: ONC 05-21 07:34 → SPU 08-12 08:09 → ONC 15:34
PROVIDERS: ATTEND Internal Medicine Hematology
DX: D75.1 Secondary polycythemia (principal); I10 Essential (primary) hypertension; E78.00 Pure hypercholesterolemia, unspecified; Z86.73 Personal history of transient ischemic attack (TIA), and cerebral infarction without residual deficits; Z79.82 Long term (current) use of aspirin
CPT/HCPCS: 36415; 85025; G0463; 93350; 99212

== ENCOUNTER → 2018-09-24 | Outpatient (CLI) | payer MEDICARE, OTHER ==
[~2018-09-24] MED LIST changes: -AMLO-111 PO; +AMLO-125 PO; -AMLO2.5T76 PO; +AMLO2.5T78 PO; +OMEP-125 PO
== END ==
LOC: LAB 09:38
PROVIDERS: ATTEND Nurse Practitioner
DX: L43.9 Lichen planus, unspecified (principal)
CPT/HCPCS: 88305

== ENCOUNTER → 2018-10-21 | Outpatient (CLI) | payer MEDICARE, OTHER ==
[~2018-10-21] MED LIST changes: +AMOX500T10 PO; +IPRA3AMP10 IH; +LEVO-85 PO
--- NOTE | 2018-10-21 16:26 | RADIOLOGY IMAGING REPORT ---
FACILITY: [facility] [place] PATIENT NAME: Nhi Chua : 1940 MR: [id number] V: [id number] EXAM DATE: ORDERING PHYSICIAN: DANIEL HOLLOWAY TECHNOLOGIST: Location: [facility] Patient: Nhi Chua : 1940 Visit/Account:[id number] Date of Sevice: 10/21/2018 Exam type: CHEST PA LAT History: cough Comparison: February 18, 2018. Findings: Since the prior study there has been development of patchy infiltrates throughout the lungs most prom inent in the upper lung hernandez. There is also mild diffuse peribronchial thickening and increased wh en compared the prior study. There is no evidence of pleural effusions or overt pulmonary edema. Th e cardiac silhouette is normal in size. patient monitor projects over the anterior left chest IMPRESSION: 1. There is been development of patchy infiltrates throughout the lungs most prominent in the upper lung hernandez in addition to mild diffuse peribronchial thickening. Findings are likely related to mul tifocal pneumonia. Short-term interval follow-up recommended Report Dictated By: Radha Awan MD at 10/21/2018 4:20 PM Report E-Signed By: Radha Awan MD at 10/21/2018 4:22 PM WSN:[id number]
== END ==
LOC: RAD 14:33
PROVIDERS: ATTEND Internal Medicine
DX: R05 Cough (principal); R55 Syncope and collapse
CPT/HCPCS: 71046

== ENCOUNTER → 2018-10-25 | Outpatient (CLI) | payer MEDICARE, OTHER ==
[2018-10-25 09:18] LABS: PLATELET COUNT, AUTOMATED 315 K/uL (150-450)
--- NOTE | 2018-10-25 10:02 | RADIOLOGY IMAGING REPORT ---
[place] [facility] [place] NAME: Nhi Chua : 1940 MR: [id number] V: [id number] EXAM DATE: ORDERING PHYSICIAN: ZEESHAN GONZALEZ TECHNOLOGIST: Location: [facility] Patient: Nhi Chua : 1940 Visit/Account:[id number] Date of Sevice: 10/25/2018 Exam type: CHEST PA LAT History: F/U pneumonia, worsening shortness of breath and fatigu Comparison: October 21, 2018. Findings: Patchy infiltrates are again seen throughout the lungs in addition to diffuse peribronchial thickenin g that remains relatively unchanged. There is no evidence of pleural effusions. The cardiac silhoue tte is normal in size. security monitor projects over the anterior left chest wall. IMPRESSION: 1. Patchy bilateral pulmonary infiltrates and peribronchial thickening appears relatively unchanged when compared to the prior study most likely related to multifocal pneumonia. Short-term interval fo llow-up recommended Report Dictated By: Radha Awan MD at 10/25/2018 9:56 AM Report E-Signed By: Radha Awan MD at 10/25/2018 9:58 AM WSN:[id number]
== END ==
LOC: LAB 08:59
PROVIDERS: ATTEND Nurse Practitioner Primary Care
DX: J18.9 Pneumonia, unspecified organism (principal)
CPT/HCPCS: 36415; 71046; 82040; 82247; 82310; 82374; 82435; 82565; 82947; 84075; 84132; 84155; 84295; 84450; 84460; 84520; 85025

== ENCOUNTER 2018-10-27 14:36 | Inpatient (IN) | payer MEDICARE, OTHER ==
[~2018-10-27] VITALS: Ht 168.9 cm; Wt 67.1 kg
--- NOTE | 2018-10-27 14:56 | ER Report ---
History and Physical Time Seen By MD: 14:50 Hx. of Stated Complaint: PATIENT WAS IN PRIMARY CARE'S OFFICE AND WAS DIAGNOSED WITH PNEUMONIA. WAS AT 85% ON ROOM AIR. NOW ON 2L NASAL CANNULA. HAS BEEN ON ANTIBIOTICS FOR 6 DAYS HPI/ROS CHIEF COMPLAINT: Cough fever chills HISTORY OF PRESENT ILLNESS: 78 show female comes in with a known history of diagnosis of pneumonia was diagnosed several days is been on outpatient therapy for the last 6 days multifocal multi-patchy pneumonia was diagnosed last x-ray was 2 days ago patient went to the clinic for follow-up is been getting worse still feeling short of breath productive cough seeming to have failed outpatient management sent to the ER for emergent evaluation for additional comorbidities and issues and potential admission to the hospital patient says that her sympt oms have been getting worse including but not limited to a productive cough denies chest pain denies abdominal pain nausea vomiting does feel weakness and fatigue had a negative outpatient flu test patient has no additional complaints at this time REVIEW OF SYSTEMS: Respiratory: Cough shortness of breath Cardiovascular: No chest pain, no palpitations. Gastrointestinal: No vomiting, no abdominal pain. Musculoskeletal: No back pain. Remainder of the 14 system rev: Yes Allergies: Coded Allergies: [id number] Reductase Inhibitor (Verified Allergy, Unknown, GI DISTRESS, 02/18/18) myalgias codeine (Verified Allergy, Unknown, MENTAL STATUS CHANGES, 02/18/18) lisinopril (Verified Allergy, Unknown, 02/18/18) cough milk (Verified Allergy, Unknown, UNKNOWN, 02/18/18) Home Meds Active Scripts Levofloxacin 500 Mg Tab (LEVAQUIN 500 MG TAB) 500 Mg Tablet, 1 TAB PO QDAY, #10 TAB 0 Refills Prov:DANIEL HOLLOWAY MD 10/22/18 Ipratropium/Albuterol Sulfate (IPRAT-ALBUT 0.5-3(2.5) MG/3 ML) 3 Ml Ampul.neb, 3 ML IH Q4-6H PRN for shortness of breath, #20 EACH 0 Refills Prov:DANIEL HOLLOWAY MD 10/22/18 Metoprolol Succinate (METOPROLOL SUCCINATE) 25 Mg Tab.er.24h, 1 TAB PO BID, #180 TAB 1 Refill Prov:DANIEL HOLLOWAY MD 07/06/18 Amlodipine Besylate (AMLODIPINE BESYLATE) 2.5 Mg Tablet, 1 TAB PO QDAY, #90 TAB 1 Refill Prov:DANIEL HOLLOWAY MD 07/06/18 Albuterol Sulfate 90 Mcg/Act (PROAIR HFA 90 MCG/ACT) 8.5 Gm Hfa.aer.ad, 2 PUFF IH Q4-6H PRN for cough, tightness in chest, #1 INHALER 0 Refills Prov:DANIEL HOLLOWAY MD 12/02/17 Reported Medications Omeprazole (OMEPRAZOLE) 20 Mg Capsule.dr, 1 CAP PO QDAY, CAP 09/02/18 Pitavastatin Calcium (LIVALO) 2 Mg Tablet, 1 TAB PO QDAY 03/25/18 Calcium Carb & Cit/Vitamin D3 (CITRACAL + D ER TABLET) 1 Each Tablet.er, 1 TAB PO QDAY 03/25/18 Fluticasone Prop 50 Mcg Ns (FLONASE 50 MCG NS) 16 Gm [place].susp, 2 SPRAYS NS QDAY, BOT 03/11/18 Oxygen (OXYGEN) Inha, 2 L INH HS 10/27/17 Multivitamin With Minerals (MULTIPLE VITAMIN) 1 Each Tablet, 1 TAB PO QDAY 10/15/17 Vit A/Vit C/Vit E/Zinc/Copper (PRESERVISION AREDS SOFTGEL) 1 Each Capsule, 1 CAP PO BID 10/13/17 Ubidecarenone (CO Q-10) 100 Mg Capsule, 1 CAP PO QDAY 07/14/17 [place]-3/Dha/Epa/Fish Oil (OMEGAMINT FISH OIL 750 MG SFGL) 1 Each Capsule, 1 CAP PO QDAY 03/26/17 Aspirin (ASPIR 81) 81 Mg Tablet.dr, 1 TAB PO QDAY 03/26/17 Discontinued Scripts Benzonatate (BENZONATATE) 200 Mg Capsule, 1 CAP PO TID PRN for cough, #15 CAP 0 Refills Prov:DANIEL HOLLOWAY MD 10/14/18 Amoxicillin 500 Mg Tab (AMOXICILLIN 500 MG TAB) 500 Mg Tablet, 2 TAB PO TID, #60 TAB 0 Refills Prov:DANIEL HOLLOWAY MD 10/14/18 Reviewed Nurses Notes: Yes Old Medical Records Reviewed: Yes Hx Smoking: No Smoking Status: Never Smoker Exposure to Second Hand Smoke?: Yes Constitutional Vital Sign - Last 24 Hours 10/27/18 10/27/18 10/27/18 10/27/18 14:41 14:46 14:56 15:05 Pulse 96 B/P (MAP) 129/63 (85) Pulse Ox 93 95 O2 Delivery Nasal Cannula O2 Flow Rate 2.0 10/27/18 10/27/18 10/27/18 15:16 15:36 15:56 Pulse 99 92 109 Resp 27 17 24 Pulse Ox 93 91 91 Physical Exam General Appearance: The patient is alert, has no immediate need for airway protection and no current signs of toxicity. [ ] Eyes: Pupils equal and round no injection. Respiratory: Chest is non tender, lungs are clear to auscultation. Cardiac: regular rate and rhythm [ ] Gastrointestinal: Abdomen is soft and non tender, no masses, bowel sounds normal. Musculoskeletal: Neck: Neck is supple and non tender. Extremities have full range of motion and are non tender. Skin: No rashes or lesions. [ ] DIFFERENTIAL DIAGNOSIS: After history and physical exam differential diagnosis was considered for pneumonia bronchitis COPD congestive heart failure Medical Decision Making Data Points Result Diagram: 10/27/18 1508 10/27/18 1508 Laboratory Hematology Test 10/27/18 15:08 Red Blood Count 4.45 M/uL (4.17-5.56) Mean Corpuscular Volume 92.0 fL (80.0-96.0) Mean Corpuscular Hemoglobin 30.8 pg (26.0-33.0) Mean Corpuscular Hemoglobin Concent 33.5 g/dL (32.0-36.0) Red Cell Distribution Width 13.7 % (11.5-14.5) Mean Platelet Volume 7.2 fL (7.2-11.1) Neutrophils (%) (Auto) 84.3 % (39.4-72.5) Lymphocytes (%) (Auto) 7.8 % (17.6-49.6) Monocytes (%) (Auto) 6.2 % (4.1-12.4) Eosinophils (%) (Auto) 1.2 % (0.4-6.7) Basophils (%) (Auto) 0.5 % (0.3-1.4) Nucleated RBC Relative Count (auto) 0.0 /100WBC Neutrophils # (Auto) 14.1 K/uL (2.0-7.4) Lymphocytes # (Auto) 1.3 K/uL (1.3-3.6) Monocytes # (Auto) 1.0 K/uL (0.3-1.0) Eosinophils # (Auto) 0.2 K/uL (0.0-0.5) Basophils # (Auto) 0.1 K/uL (0.0-0.1) Nucleated RBC Absolute Count (auto) 0.00 K/uL D-Dimer Quantitative (PE/DVT) 1.13 ug/ml (0-0.50) Sodium Level 137 mmol/L (137-145) Potassium Level 3.6 mmol/L (3.5-5.0) Chloride Level 97 mmol/L (98-107) Carbon Dioxide Level 29 mmol/L (22-31) Blood Urea Nitrogen 10 mg/dl (7-18) Creatinine 0.60 mg/dl (0.52-1.04) Glomerular Filtration Rate Calc > 60.0 Random Glucose 108 mg/dl (75-110) Lactate 1.0 mmol/L (0.7-2.1) Calcium Level 9.3 mg/dl (8.4-10.2) Total Bilirubin 0.9 mg/dl (0.2-1.3) Aspartate Amino Transf (AST/SGOT) 30 U/L (0-35) Alanine Aminotransferase (ALT/SGPT) 49 U/L (0-56) Alkaline Phosphatase 99 U/L (0-126) Troponin I < 0.012 ng/ml B-Type Natriuretic Peptide 25 pg/ml (0-100) Total Protein 6.1 g/dl (6.3-8.2) Albumin 3.5 g/dl (3.5-5.0) Chemistry Test 10/27/18 15:08 White Blood Count 16.7 k/uL (4.5-11.0) Red Blood Count 4.45 M/uL (4.17-5.56) Hemoglobin 13.7 g/dL (12.0-16.0) Hematocrit 40.9 % (34.0-47.0) Mean Corpuscular Volume 92.0 fL (80.0-96.0) Mean Corpuscular Hemoglobin 30.8 pg (26.0-33.0) Mean Corpuscular Hemoglobin Concent 33.5 g/dL (32.0-36.0) Red Cell Distribution Width 13.7 % (11.5-14.5) Platelet Count 350 K/uL (150-450) Mean Platelet Volume 7.2 fL (7.2-11.1) Neutrophils (%) (Auto) 84.3 % (39.4-72.5) Lymphocytes (%) (Auto) 7.8 % (17.6-49.6) Monocytes (%) (Auto) 6.2 % (4.1-12.4) Eosinophils (%) (Auto) 1.2 % (0.4-6.7) Basophils (%) (Auto) 0.5 % (0.3-1.4) Nucleated RBC Relative Count (auto) 0.0 /100WBC Neutrophils # (Auto) 14.1 K/uL (2.0-7.4) Lymphocytes # (Auto) 1.3 K/uL (1.3-3.6) Monocytes # (Auto) 1.0 K/uL (0.3-1.0) Eosinophils # (Auto) 0.2 K/uL (0.0-0.5) Basophils # (Auto) 0.1 K/uL (0.0-0.1) Nucleated RBC Absolute Count (auto) 0.00 K/uL D-Dimer Quantitative (PE/DVT) 1.13 ug/ml (0-0.50) Glomerular Filtration Rate Calc > 60.0 Lactate 1.0 mmol/L (0.7-2.1) Calcium Level 9.3 mg/dl (8.4-10.2) Total Bilirubin 0.9 mg/dl (0.2-1.3) Aspartate Amino Transf (AST/SGOT) 30 U/L (0-35) Alanine Aminotransferase (ALT/SGPT) 49 U/L (0-56) Alkaline Phosphatase 99 U/L (0-126) Troponin I < 0.012 ng/ml B-Type Natriuretic Peptide 25 pg/ml (0-100) Total Protein 6.1 g/dl (6.3-8.2) Albumin 3.5 g/dl (3.5-5.0) Coagulation Test 10/27/18 15:08 D-Dimer Quantitative (PE/DVT) 1.13 ug/ml ED Course/Re-evaluation ED Course ED clinical course a 72 sexual female known history of interstitial pneumonitis and bacterial infection most likely atypical pneumonia comes emergency Department being sent here by her primary care's office after 6 days of failed outpatient therapy CT scan showed no PE but confirm the diagnosis was started on IV antibiotics here and have her admitted diagnosis hypoxia and pneumonitis Decision to Disposition Date: Oct 27, 2018 Decision to Disposition Time: 17:09 Depart Departure Latest Vital Signs Vital Signs Date Time Temp Pulse Resp B/P (MAP) Pulse Ox O2 Delivery O2 Flow Rate FiO2 10/27/18 15:56 109 24 91 10/27/18 15:05 2.0 10/27/18 14:46 129/63 (85) 10/27/18 14:41 Nasal Cannula Impression: Primary Impression: Pneumonia Condition: Improved Disposition: Admitted from ER Referrals: DANIEL HOLLOWAY MD (PCP) LYNNE LANGSTON MD Oct 27, 2018 14:56
--- NOTE | 2018-10-27 15:00 | EKG ---
FACILITY: [facility] PATIENT NAME: LISA GREGORY : [id number] MR: [id number] V: [id number] EXAM DATE: ORDERING PHYSICIAN: LYNNE LANGSTON TECHNOLOGIST: GUCCI Test Reason : SOB Blood Pressure : / mmHG Vent. Rate : 095 BPM Atrial Rate : 095 BPM P-R Int : 144 ms QRS Dur : 082 ms QT Int : 344 ms P-R-T Axes : 052 033 045 degrees QTc Int : 432 ms Sinus rhythm with bigeminal PACs Possible left atrial enlargement No previous ECGs available Confirmed by JOHN DE JESUS ([id number]) on 10/27/2018 5:19:14 PM Referred By: IVIS Confirmed By:JOHN DE JESUS
[2018-10-27 15:22] LABS: PLATELET COUNT, AUTOMATED 350 K/uL (150-450)
--- NOTE | 2018-10-27 15:56 | RADIOLOGY IMAGING REPORT ---
FACILITY: [facility] PATIENT NAME: Nhi Chua : 1940 MR: [id number] V: [id number] EXAM DATE: ORDERING PHYSICIAN: LYNNE LANGSTON TECHNOLOGIST: [place] [facility] [place] Nhi Ch[place] : 1940 Visit/Account:[id number] Date of Sevice: 10/27/2018 CHEST PA LAT History: sob FINDINGS: Comparison studies: Radiographs October 25, 2018 and 02/18/2018 Tubes and Lines: None. Lungs and pleura: Again seen is diffuse interstitial opacities through both lungs with faint island s of the semiconsolidation which is very similar appearance. This was not present in January 2018 confi rming this is acute process. Mediastinum: normal. Cardiac silhouette: Leadless pacemaker seen in the heart. Cardiac silhouette normal in size. Osseous structures: Unremarkable for age . IMPRESSION: No interval change. Global pneumonitis which may be infectious inflammatory or environmental. Aty pical pulmonary edema less likely. Report Dictated By: Corky Willett MD at 10/27/2018 3:46 PM Report E-Signed By: Corky Willett MD at 10/27/2018 3:49 PM WSN:[id number]
[2018-10-27] MEDS ORDERED: NS(*) 0.9% 50 ML BAG 50 ML ONE (16:10)
--- NOTE | 2018-10-27 17:04 | RADIOLOGY IMAGING REPORT ---
FACILITY: [facility] - [place] PATIENT NAME: Nhi Chua : 1940 MR: [id number] V: [id number] EXAM DATE: ORDERING PHYSICIAN: LYNNE LANGSTON TECHNOLOGIST: Location: [facility] [place] Patient: Nhi Chua : 1940 Visit/Account:[id number] Date of Sevice: 10/27/2018 CT angiogram chest with contrast Indication: Shortness breath and cough. Comparison: None available. Technique: Axial CT images are obtained through the chest after administration of 100 mL Isovue 370 I V contrast. Reformatted coronal and sagittal images were reviewed as well as coronal MIP images. One of the following dose optimization techniques was utilized in the performance of this exam: auto mated exposure control; adjustment of the mA and/or kV according to the patient's size; or use of an iterative reconstruction technique. Specific details can be referenced in the facility's radiology C T exam operational policy. FINDINGS: No evidence of filling defect within the pulmonary vasculature to suggest pulmonary embolus. The heart is normal size without pericardial effusion. Aorta shows mild atherosclerotic calcific garcia ges without aneurysm or dissection. The mediastinum and hilar regions show several enlarged prominent lymph nodes. Largest in the AP window region measures 2.3 x 1.5 cm. The largest in the right hilar r egion measures 2.0 x 1.4 cm and the largest in the left hilar region measures 2.1 x 1.9 cm. Lungs show multiple bilateral patchy interstitial opacities mainly in the periphery of both lungs wit hout focal area of consolidation. No pleural effusion or pneumothorax. No discrete nodules. The airwa ys are clear. Bony structures show no acute fractures or aggressive bony lesions. Chest wall shows no enlarged axil santino lymph nodes. The right inferior central breast does show a soft tissue nodule measuring 1.1 x 0. 7 cm. Couple calcifications seen in the right breast. No other breast lesions or chest wall masses. T he thyroid is mildly heterogeneous. The anterior left thyroid does show a 8 mm hypodense nodule. Small hiatal hernia. The upper abdomen is otherwise unremarkable. IMPRESSION: 1. No evidence of pulmonary embolus. 2. Bilateral peripheral hazy interstitial opacities mainly in the periphery without consolidation. Th is nonspecific but may be secondary to infectious or inflammatory pneumonitis. This would include typ ical and atypical including fungal process. 3. Mediastinal and hilar adenopathy. Nonspecific but could be secondary to the lung process. 4. Right breast nodule. On previous mammogram dated 03/09/2018 this is described as stable. 5. 8 mm left thyroid hypodense nodule. ACR recommendations for incidental thyroid nodules on CT or MR I without suspicious features (no nodule invasion or lymphadenopathy): - Age < 35 recommend thyroid ultrasound for nodule >= 1 cm. No follow up for nodules < 1 cm -Age > 35 recommend thyroid ultrasound for nodule >= 1.5 cm. No follow up for nodules < 1.5 cm I called report to LYNNE LANGSTON at 10/27/2018 4:58 PM. Report Dictated By: Campbell Duran at 10/27/2018 4:46 PM Report E-Signed By: Campbell Duran at 10/27/2018 4:59 PM WSN:[id number]
[2018-10-27] MEDS ORDERED: AZITHROMYCIN(*) 500 MG 500 MG in NS(*) 0.9% 250 ML BAG 250 ML IVPB ONE (17:15)
[2018-10-27 18:10] VITALS: BP 144/66
[2018-10-27] MEDS ORDERED: NS(*) 0.9% 1000 ML BAG 1,000 ML IV PRN (18:20)
[2018-10-27] MEDS ORDERED: FLUSH 10 ML SYR IVP PRN (18:20)
--- NOTE | 2018-10-27 18:41 | History & Physical ---
History of Present Illness Chief Complaint Cough, weak, short of breath History of Present Illness 78yo female with PMHx significant for HTN, hyperlipidemia, TIA. She reports onset of cough and mild dyspnea a month ago. It progressed slowly over the past several weeks and approximately a week ago she began to feel much more short of breath, feverish, weak. She was having nightsweats as well. She has had poor appetite with frequent waterbrash/pyrosis. She does report some hoarseness of voice. She also coughs/chokes occasionally with eating/drinking. She denies any recent travel. She has does have a dog, but no other pets. She does occasional gardening, but has not been turning over soil recently. She was evaluated in the outpatient clinic and felt to have pneumonia. She has been on a course of Levaquin for the past 6 days without improvement. She was referred to the ER today for further evaluation. CT pulmonary angiogram was negative for PE, but did show bilateral peripheral infiltrates. She was recommended for admission. History Problems: (1) TIA (transient ischemic attack) Status: Resolved (2) Essential hypertension Status: Chronic (3) Hypercholesterolemia Status: Chronic (4) Osteopenia Status: Chronic (5) Erythrocytosis Status: Chronic (6) Nocturnal oxygen desaturation Status: Chronic (7) GERD (gastroesophageal reflux disease) Status: Chronic (8) History of melanoma Status: Chronic (9) History of appendectomy Status: Resolved (10) History of hysterectomy Status: Resolved Home Meds Active Scripts Levofloxacin 500 Mg Tab (LEVAQUIN 500 MG TAB) 500 Mg Tablet, 1 TAB PO QDAY, #10 TAB 0 Refills Prov:DANIEL HOLLOWAY MD 10/22/18 Ipratropium/Albuterol Sulfate (IPRAT-ALBUT 0.5-3(2.5) MG/3 ML) 3 Ml Ampul.neb, 3 ML IH Q4-6H PRN for shortness of breath, #20 EACH 0 Refills Prov:DANIEL HOLLOWAY MD 10/22/18 Metoprolol Succinate (METOPROLOL SUCCINATE) 25 Mg Tab.er.24h, 1 TAB PO BID, #180 TAB 1 Refill Prov:DANIEL HOLLOWAY MD 07/06/18 Amlodipine Besylate (AMLODIPINE BESYLATE) 2.5 Mg Tablet, 1 TAB PO QDAY, #90 TAB 1 Refill Prov:DANIEL HOLLOWAY MD 07/06/18 Albuterol Sulfate 90 Mcg/Act (PROAIR HFA 90 MCG/ACT) 8.5 Gm Hfa.aer.ad, 2 PUFF IH Q4-6H PRN for cough, tightness in chest, #1 INHALER 0 Refills Prov:DANIEL HOLLOWAY MD 12/02/17 Reported Medications Pitavastatin Calcium (LIVALO) 2 Mg Tablet, 1 TAB PO QDAY 03/25/18 Calcium Carb & Cit/Vitamin D3 (CITRACAL + D ER TABLET) 1 Each Tablet.er, 1 TAB PO QDAY 03/25/18 Fluticasone Prop 50 Mcg Ns (FLONASE 50 MCG NS) 16 Gm Adamant.susp, 2 SPRAYS NS QDAY, BOT 03/11/18 Oxygen (OXYGEN) Inha, 2 L INH HS 10/27/17 Multivitamin With Minerals (MULTIPLE VITAMIN) 1 Each Tablet, 1 TAB PO QDAY 10/15/17 Vit A/Vit C/Vit E/Zinc/Copper (PRESERVISION AREDS SOFTGEL) 1 Each Capsule, 1 CAP PO BID 10/13/17 Ubidecarenone (CO Q-10) 100 Mg Capsule, 1 CAP PO QDAY 07/14/17 Forest-3/Dha/Epa/Fish Oil (OMEGAMINT FISH OIL 750 MG SFGL) 1 Each Capsule, 1 CAP PO QDAY 03/26/17 Aspirin (ASPIR 81) 81 Mg Tablet., 1 TAB PO QDAY 03/26/17 Discontinued Reported Medications Omeprazole (OMEPRAZOLE) 20 Mg Capsule., 1 CAP PO QDAY, CAP 09/02/18 Discontinued Scripts Benzonatate (BENZONATATE) 200 Mg Capsule, 1 CAP PO TID PRN for cough, #15 CAP 0 Refills Prov:DANIEL HOLLOWAY MD 10/14/18 Amoxicillin 500 Mg Tab (AMOXICILLIN 500 MG TAB) 500 Mg Tablet, 2 TAB PO TID, #60 TAB 0 Refills Prov:DANIEL HOLLOWAY MD 10/14/18 Allergies: Coded Allergies: Enpvidc-Ckt-Atw Reductase Inhibitor (Verified Allergy, Unknown, GI DISTRESS, 02/18/18) myalgias codeine (Verified Allergy, Unknown, MENTAL STATUS CHANGES, 02/18/18) lisinopril (Verified Allergy, Unknown, 02/18/18) cough milk (Verified Allergy, Unknown, UNKNOWN, 02/18/18) Patient History: Diabetes mellitus (DM) MOTHER, , Age:80 FH: HTN (hypertension) MOTHER, , Age:80 FH: heart failure MOTHER, , Age:80 FH: multiple sclerosis FATHER, , Age:72 FH: pneumonia FATHER, , Age:72 FH: stroke MOTHER, , Age:80 TIAs MOTHER, , Age:80 Hx Smoking: No Smoking Status: Never Smoker Exposure to Second Hand Smoke?: Yes Hx Alcohol Use: Yes (very rare) Social Drug Use: Never Review of Systems Constitutional: Fever, Chills, Night Sweats Neurological: Weakness Eyes: No Vision Change, No Loss of Vision Cardiovascular: Palpitations; No Chest Pain Respiratory: Shortness of Breath, Cough Gastrointestinal: No Nausea, No Vomiting, No Hematemesis, No Hematochezia, No Melena, No Abdominal Pain Genitourinary: No Dysuria Exam Vital Signs Vital Signs Date Time Temp Pulse Resp B/P (MAP) Pulse Ox O2 Delivery O2 Flow Rate FiO2 10/27/18 17:38 87 18 132/87 (102) 91 Room Air 2 10/27/18 14:41 98.6 General Appearance: Alert, Awake Neuro: No Gross deficits ENT: Oropharynx Clear Neck: No Masses Cardiovascular: Other (Regular with frequent ectopy ) Respiratory: Other (bibasilar rales/no wheezes) Chest: No Tenderness GI: Abd Soft and Non-Tender : No CVA Tenderness Lymph: No Adenopathy Extremities: Warm, Perfused Integumentary: Other (dry skin/no lesions or rashes noted) Psych: Alert & Oriented X3 Medical Decision Making Data Points Result Diagram: 10/27/18 1508 10/27/18 1508 EKG / Imaging EKG Interpretation PATIENT NAME: LISA GREGORY : [id number] MR: [id number] V: [id number] EXAM DATE: ORDERING PHYSICIAN: LYNNE LANGSTON TECHNOLOGIST: GUCCI Test Reason : SOB Blood Pressure : / mmHG Vent. Rate : 095 BPM Atrial Rate : 095 BPM P-R Int : 144 ms QRS Dur : 082 ms QT Int : 344 ms P-R-T Axes : 052 033 045 degrees QTc Int : 432 ms Sinus rhythm with bigeminal PACs Possible left atrial enlargement No previous ECGs available Confirmed by JOHN DE JESUS ([id number]) on 10/27/2018 5:19:14 PM Referred By: IVIS Confirmed By:JOHN DE JESUS Imaging PATIENT NAME: Lisa Gregory : 1940 MR: [id number] V: [id number] EXAM DATE: ORDERING PHYSICIAN: LYNNE LANGSTON TECHNOLOGIST: Location: [facility] - [place] Patient: Lisa Gregory : 1940 Visit/Account:[id number] Date of Sevice: 10/27/2018 CT angiogram chest with contrast Indication: Shortness breath and cough. Comparison: None available. Technique: Axial CT images are obtained through the chest after administration of 100 mL Isovue 370 IV contrast. Reformatted coronal and sagittal images were reviewed as well as coronal MIP images. One of the following dose optimization techniques was utilized in the performance of this exam: automated exposure control; adjustment of the mA and/or kV according to the patient's size; or use of an iterative reconstruction technique. Specific details can be referenced in the facility's radiology CT exam operational policy. FINDINGS: No evidence of filling defect within the pulmonary vasculature to suggest pulmonary embolus. The heart is normal size without pericardial effusion. Aorta shows mild atherosclerotic calcific changes without aneurysm or dissection. The mediastinum and hilar regions show several enlarged prominent lymph nodes. Largest in the AP window region measures 2.3 x 1.5 cm. The largest in the right hilar region measures 2.0 x 1.4 cm and the largest in the left hilar region measures 2.1 x 1. 9 cm. Lungs show multiple bilateral patchy interstitial opacities mainly in the periphery of both lungs without focal area of consolidation. No pleural effusion or pneumothorax. No discrete nodules. The airways are clear. Bony structures show no acute fractures or aggressive bony lesions. Chest wall shows no enlarged axillary lymph nodes. The right inferior central breast does show a soft tissue nodule measuring 1.1 x 0.7 cm. Couple calcifications seen in the right breast. No other breast lesions or chest wall masses. The thyroid is mildly heterogeneous. The anterior left thyroid does show a 8 mm hypodense nodule. Small hiatal hernia. The upper abdomen is otherwise unremarkable. IMPRESSION: 1. No evidence of pulmonary embolus. 2. Bilateral peripheral hazy interstitial opacities mainly in the periphery without consolidation. This nonspecific but may be secondary to infectious or i nflammatory pneumonitis. This would include typical and atypical including fungal process. 3. Mediastinal and hilar adenopathy. Nonspecific but could be secondary to the lung process. 4. Right breast nodule. On previous mammogram dated 03/09/2018 this is described as stable. 5. 8 mm left thyroid hypodense nodule. ACR recommendations for incidental thyroid nodules on CT or MRI without suspicious features (no nodule invasion or lymphadenopathy): - Age < 35 recommend thyroid ultrasound for nodule >= 1 cm. No follow up for nodules < 1 cm -Age > 35 recommend thyroid ultrasound for nodule >= 1.5 cm. No follow up for nodules < 1.5 cm I called report to LYNNE LANGSTON at 10/27/2018 4:58 PM. Report Dictated By: Campbell Duran at 10/27/2018 4:46 PM Report E-Signed By: Campbell Duran at 10/27/2018 4:59 PM WSN:[id number] Assessment and Plan Problems: (1) Community acquired pneumonia Status: Acute Assessment & Plan: Bilateral which has been refractory to outpatient treatment. It certainly sounds like it may be an atypical etiology. Will admit and place on IV antibiotics with Rocephin and doxycycline. Will give respiratory treatments and supplemental oxygen as needed. It is also possible this could represent an inflammatory process. Will need to consider further workup if not resolving. (2) GERD (gastroesophageal reflux disease) Status: Chronic Assessment & Plan: Will start PPI therapy. May need to consider swallow evaluation as well. (3) TIA (transient ischemic attack) Status: Resolved Assessment & Plan: Will continue her aspirin therapy. (4) Essential hypertension Status: Chronic Assessment & Plan: Continue metoprolol and amlodipine with parameters. (5) Hypercholesterolemia Status: Chronic Assessment & Plan: Will hold her statin for now. Copies to: ZEESHAN GONZALEZ DNP, SIMULATION ANALYST-BC ; Venous Thromboembolism Antithrombotics Is Pt On Any Antithrombotics?: Yes Exam Sepsis Risk: No Definite Risk JOHN DE JESUS MD Oct 27, 2018 18:41
[2018-10-27] MEDS ORDERED: cefTRIAXone(*) 1 GM VIAL 1 GM in NS(*) 0.9% 100 ML ADDVANT BAG 100 ML IVPB SCH (19:00)
[2018-10-27] MEDS ORDERED: AMLO2.5T75 PO (20:03)
[2018-10-27] MEDS ORDERED: ROS10 PO (20:20)
[2018-10-27] MEDS ORDERED: DOXYCYCLINE HYCL 100 MG VIAL 100 MG in NS(*) 0.9% 250 ML BAG 250 ML IV SCH (21:00)
[2018-10-27 21:16] VITALS: BP 153/63
[2018-10-27] MEDS: ASPIRIN 81 MG CHEW PO SCH (21:18)
[2018-10-27] MEDS: guaiFENesin 600 MG TABCR PO SCH (21:18)
[2018-10-27] MEDS: METOPROLOL SUCC XL 25 MG TABCR PO SCH (21:18)
[2018-10-27] MEDS: amLODIPine BESYL(*) 2.5 MG TAB PO SCH (21:18)
[2018-10-27] MEDS: PANTOPRAZOLE SOD 40 MG TABEC PO SCH (21:19)
[2018-10-27] MEDS: ACETAMINOPHEN 325 MG TAB PO PRN (21:19)
[2018-10-27 23:08] VITALS: BP 132/71
[2018-10-28 01:00] VITALS: BP 152/78
[2018-10-28] MEDS: ALBUTEROL 2.5 MG/3 ML NEB NEB PRN ×2 (01:06→13:31)
[2018-10-28 05:16] VITALS: BP 148/70
[2018-10-28 06:03] LABS: PLATELET COUNT, AUTOMATED 301 K/uL (150-450)
[2018-10-28 06:54] VITALS: BP 145/72
[2018-10-28] MEDS: DOXYCYCLINE HYCL 100 MG TAB PO SCH ×2 (08:49→20:41)
[2018-10-28] MEDS: CEFDINIR 300 MG CAP PO SCH ×2 (08:49→20:42)
[2018-10-28] MEDS: PANTOPRAZOLE SOD 40 MG TABEC PO SCH ×2 (08:49→20:41)
[2018-10-28] MEDS: guaiFENesin 600 MG TABCR PO SCH ×2 (08:49→20:41)
[2018-10-28] MEDS: METOPROLOL SUCC XL 25 MG TABCR PO SCH ×2 (08:49→20:42)
[2018-10-28] MEDS: ENOXAPARIN 40 MG/0.4ML SYR SC SCH (08:50)
[2018-10-28 10:58] VITALS: BP 130/60
--- NOTE | 2018-10-28 11:04 | SLP BEDSIDE SWALLOW EVALUATION ---
SPEECH THERAPY ASSESSMENT Bedside dysphagia evaluation Ordering Physician: Yanelis Pierce MD Clinician: Beulah Ortiz MS, CCC-IMPROVEMENT COORDINATOR Type of Assessment: Bedside Dysphagia Evaluation Patient: Nhi Chua : [birth year] Evaluation Date: 10/28/2018 BACKGROUND The patient is a 78 year old female admitted to [facility] with slowly progressing cough and dyspnea over the last month. She reports occasional coughing/choking with eating/drinking. CT pulmonary angiogram illustrated bilateral peripheral infiltrates. An ST consult was requested for completion of a bedside swallow assessment secondary to concerns for aspiration pneumonia. Primary Medical Diagnosis: Pneumonia Pmhx: GERD, TIA, HTN Pain Scale (0-10): 0 LOC / Participation: Alert and cooperative. Follows instructions: Yes, no difficulty Orientation: A&O x4 Functional Communication Deficits impact swallow function/safety, or response to therapy: No DYSPHAGIA Sialorrhea: No Xerostomia: No Hygiene: WFL Supplemental Oxygen Use: . LPM via NC. COPD Dx: No. Pain with Swallow: Denies. Endorses frequent globus sensation and acid reflux. Pt seen at the bedside for clinical swallowing assessment. Oral mechanism examination was unremarkable with appropriate strength, ROM, coordination, and speed of all oral musculature. Hyolaryngeal elevation and excursion adequate to palpation. The pt was analyzed with PO trials of thin liquids via cup and straw, soft solids, and regular solids. Overall, oral and pharyngeal phases of swallow appear WFL for normal PO intake from a clinical standpoint. Pt w/ adequate bolus formation, complete clearance of material from oral cavity, no overt signs of aspiration across PO trials. Cannot r/o silent aspiration. Recommend completion of a modified barium swallow study for further, objective analysis given concern for aspiration pneumonia. Pt also endorsing terrible heartburn with perception that stomach acid often reaches oral cavity. Recommend further GI consultation. Pt may be at elevated risk for reflux aspiration. ST ASSESSMENT SUMMARY Aspiration Risk: Mild. Negative prognostic indicators include compromised respiratory status/pneumonia, reported hx of choking/coughing during PO intake, and suspected esophageal dysphagia. AYLIN: Level 6, modified independence with avoidance of problematic foods largely secondary to reports of globus sensation and acid reflux. Speech Therapy Need Swallow status is WFL from a clinical standpoint. Cannot r/o silent aspiration. Recommend completion of an objective, modified barium swallow study to assist in establishing goals for dysphagia interventions. RECOMMENDATIONS 1. Diet: Regular, thin liquids. 2. Medications: Whole, ok with thin liquids. 3. Compensatory Techniques: regular oral hygiene, upright positioning during PO intake, upright positioning 45 min after PO intake, elevate HOB to 30 degrees, alternate 2-3 bites with a sip of liquid, avoid restrictive clothing/belts. 4. Supervision with meals/snacks: Not warranted. 5. Referrals: MBSS, GI consult Thank you for this referral. Beulah Ortiz M.S., [facility]-IMPROVEMENT COORDINATOR Speech Therapist [*] ARACELI
--- NOTE | 2018-10-28 11:05 | NUR ---
ST Bedside Swallow Eval Summary Please see full report for detailed information. Overall, oral and pharyngeal phases of swallow appear WFL for normal PO intake from a clinical standpoint. Cannot r/o silent aspiration. Recommend completion of a modified barium swallow study for further, objective analysis given concern for aspiration pneumonia. Pt also endorsing terrible heartburn with perception that stomach acid often reaches oral cavity. Recommend further GI consultation. Pt may be at elevated risk for reflux aspiration. If the pt is medically appropriate for discharge to home environment, it would be appropriate to follow-up for completion of MBSS and GI consultation as an outpatient. However, would not delay follow-up. RECOMMENDATIONS 1. Diet: Regular, thin liquids. 2. Medications: Whole, ok with thin liquids. 3. Compensatory Techniques: regular oral hygiene, upright positioning during PO intake, upright positioning 45 min after PO intake, elevate HOB to 30 degrees, alternate 2-3 bites with a sip of liquid, avoid restrictive clothing/belts. 4. Supervision with meals/snacks: Not warranted. 5. Referrals: MBSS, GI consult [*]
--- NOTE | 2018-10-28 11:34 | Hospitalist Progress Note ---
Subjective Progress Notes Subjective This patient was admitted for pneumonia. She had no acute events overnight. Patient Complains of: Cardiovascular: No: Chest Pain Respiratory: No: Shortness of Breath Physical Exam Vital Signs Date Time Temp Pulse Resp B/P (MAP) Pulse Ox O2 Delivery O2 Flow Rate FiO2 10/28/18 10:58 98.5 112 18 130/60 (83) 90 Nasal Cannula 2.0 Intake and Output 10/28/18 07:00 Intake Total 2105 ml Balance 2105 ml Intake Oral 1020 ml IV Total 1085 ml # Voids 4 Cardiovascular: Regular Rate and Rhythm Respiratory: Clear to Auscultation Result Diagram: 10/28/18 0457 10/28/18 0457 Assessment and Plan Problems: (1) Community acquired pneumonia Status: Acute Assessment & Plan: Her CT scan showed an atypical pattern. She had previously been on levofloxacin as an outpatient. She was placed on ceftriaxone and azithromycin at admission. We have now converted her to oral antibiotics. (2) GERD (gastroesophageal reflux disease) Status: Chronic Assessment & Plan: She has been started on Protonix. Speech has recommended a swallow evaluation. (3) TIA (transient ischemic attack) Status: Resolved Assessment & Plan: Will continue her aspirin therapy. (4) Essential hypertension Status: Chronic Assessment & Plan: Continue metoprolol and amlodipine with parameters. (5) Hypercholesterolemia Status: Chronic Assessment & Plan: Will hold her statin for now. Exam Sepsis Risk: Sepsis Risk SHOSHANA JOINER DO Oct 28, 2018 11:34
--- NOTE | 2018-10-28 12:59 | Antimicrobial Stewardship ---
Antimicrobial Stewardship Empiricly appropriate: Yes (CAP) Support empiric regimen: Yes (Ceftriaxone Doxycycline) Determine cumulative duration: 6 days outpatient with levofloxacin, today is day 2 Determine standard duration: Total duration 5-7 days with new regimen Comment 78 yo F treated as an outpatient x 6 days with levofloxacin for a CAP, worsening symptoms brought her to the ED for evaluation. Tmax afeb WBC 16.7-->10.2 Chest xray--> global pneumonitis CTA of chest (d dimer elevated) --> (-) PE, interstitial opacities Influenza (-) in outpt clinic Plan continue antibiotics to complete 5-7 days, switch to oral cefdinir and doxycycline today. Will continue to follow and monitor. Augusta Bucio, PharmD, BCOP [place] BUCIO Oct 28, 2018 12:59
[2018-10-28 13:29] VITALS: Ht 168.9 cm; Wt 67.1 kg
[2018-10-28] MEDS: POLYETHYLENE GLYCOL 17 GM PKT PO SCH (14:32)
[2018-10-28] MEDS: ACETAMINOPHEN 325 MG TAB PO PRN (14:32)
[2018-10-28] MEDS ORDERED: POLYETHYLENE GLYCOL 17 GM PKT ONE (14:33)
[2018-10-28 14:36] VITALS: BP 150/68
[2018-10-28 19:42] VITALS: BP 142/70
[2018-10-28] MEDS: ASPIRIN 81 MG CHEW PO SCH (20:42)
[2018-10-28] MEDS: amLODIPine BESYL(*) 2.5 MG TAB PO SCH (20:42)
[2018-10-29 00:59] VITALS: BP 160/80
[2018-10-29 06:01] VITALS: BP 160/72
[2018-10-29] MEDS: DOXYCYCLINE HYCL 100 MG TAB PO SCH (08:54)
[2018-10-29] MEDS: guaiFENesin 600 MG TABCR PO SCH (08:54)
[2018-10-29] MEDS: CEFDINIR 300 MG CAP PO SCH (08:54)
[2018-10-29] MEDS: ENOXAPARIN 40 MG/0.4ML SYR SC SCH (08:54)
[2018-10-29] MEDS: METOPROLOL SUCC XL 25 MG TABCR PO SCH (08:54)
[2018-10-29] MEDS: PANTOPRAZOLE SOD 40 MG TABEC PO SCH (08:54)
[2018-10-29] MEDS: POLYETHYLENE GLYCOL 17 GM PKT PO SCH (08:54)
[2018-10-29] MEDS ORDERED: DOXY-179 PO (08:57)
[2018-10-29] MEDS ORDERED: CEF300 PO (08:57)
[2018-10-29 08:58] VITALS: BP 138/72
--- NOTE | 2018-10-29 08:59 | Hospitalist Depart ---
Discharge Summary Reason for Hosp/Final Diag: (1) Community acquired pneumonia Status: Acute Hospital Course & Plan: Her CT scan showed an atypical pattern. She had previously been on levofloxacin as an outpatient. She was placed on ceftriaxone and doxycycline at admission. We have now converted her to oral antibiotics. She will continue five days of antibiotics, she will follow up next week with her PCP. (2) GERD (gastroesophageal reflux disease) Status: Chronic Hospital Course & Plan: She has been started on Protonix. Speech has recommended a swallow evaluation as an outpatient. She will follow up with gastroenterology. (3) TIA (transient ischemic attack) Status: Resolved Hospital Course & Plan: Will continue her aspirin therapy. (4) Essential hypertension Status: Chronic Hospital Course & Plan: Continue metoprolol and amlodipine with parameters. (5) Hypercholesterolemia Status: Chronic Hospital Course & Plan: Her chronic statin was held during admission. She will resume at home. Departure Weight (Pounds): 148 Result Diagram: 10/28/1845610/28/18456 Condition: Improved Discharge: Home, Self Care Discharge Instructions Home Meds Active Scripts Pantoprazole Sodium (PANTOPRAZOLE SODIUM) 40 Mg Tablet.dr, 40 MG PO QDAY, #30 TAB.SR Prov:TAPAN HERNANDEZ [facility] 10/29/18 Doxycycline Hyclate (DOXYCYCLINE HYCLATE) 100 Mg Tablet, 100 MG PO BID for 5 Days, #10 TAB Prov:TAPAN HERNANDEZ [facility] 10/29/18 Cefdinir 300 Mg Cap (OMNICEF 300 MG CAP (OR EQUIV)) 300 Mg Cap, 300 MG PO BID for 5 Days, #10 CAP Prov:TAPAN HERNANDEZ [facility] 10/29/18 Metoprolol Succinate (METOPROLOL SUCCINATE) 25 Mg Tab.er.24h, 1 TAB PO BID, #180 TAB 1 Refill Prov:DANIEL HOLLOWAY MD 07/06/18 Reported Medications Rosuvastatin Calcium (CRESTOR) 10 Mg Tab, 10 MG PO QPM, #5 TAB 10/27/18 Amlodipine Besylate (NORVASC) 2.5 Mg Tablet, 1 TAB PO QPM, TAB 10/27/18 Calcium Carb & Cit/Vitamin D3 (CITRACAL + D ER TABLET) 1 Each Tablet.er, 1 TAB PO QDAY 03/25/18 Fluticasone Prop 50 Mcg Ns (FLONASE 50 MCG NS) 16 Gm [place].susp, 2 SPRAYS NS QDAY, BOT 03/11/18 Oxygen (OXYGEN) Inha, 2 L INH HS 10/27/17 Multivitamin With Minerals (MULTIPLE VITAMIN) 1 Each Tablet, 1 TAB PO QDAY 10/15/17 Vit A/Vit C/Vit E/Zinc/Copper (PRESERVISION AREDS SOFTGEL) 1 Each Capsule, 1 CAP PO BID 10/13/17 Ubidecarenone (CO Q-10) 100 Mg Capsule, 1 CAP PO QDAY 07/14/17 Roff-3/Dha/Epa/Fish Oil (OMEGAMINT FISH OIL 750 MG SFGL) 1 Each Capsule, 1 CAP PO QDAY 03/26/17 Aspirin (ASPIR 81) 81 Mg Tablet.dr, 1 TAB PO QPM 03/26/17 Discontinued Reported Medications Omeprazole (OMEPRAZOLE) 20 Mg Capsule.dr, 1 CAP PO QDAY, CAP 09/02/18 Pitavastatin Calcium (LIVALO) 2 Mg Tablet, 1 TAB PO QDAY 03/25/18 Discontinued Scripts Levofloxacin 500 Mg Tab (LEVAQUIN 500 MG TAB) 500 Mg Tablet, 1 TAB PO QDAY, #10 TAB 0 Refills Prov:DANIEL HOLLOWAY MD 10/22/18 Ipratropium/Albuterol Sulfate (IPRAT-ALBUT 0.5-3(2.5) MG/3 ML) 3 Ml Ampul.neb, 3 ML IH Q4-6H PRN for shortness of breath, #20 EACH 0 Refills Prov:DANIEL HOLLOWAY MD 10/22/18 Benzonatate (BENZONATATE) 200 Mg Capsule, 1 CAP PO TID PRN for cough, #15 CAP 0 Refills Prov:DANIEL HOLLOWAY MD 10/14/18 Amlodipine Besylate (AMLODIPINE BESYLATE) 2.5 Mg Tablet, 1 TAB PO QDAY, #90 TAB 1 Refill Prov:DANIEL HOLLOWAY MD 07/06/18 Albuterol Sulfate 90 Mcg/Act (PROAIR HFA 90 MCG/ACT) 8.5 Gm Hfa.aer.ad, 2 PUFF IH Q4-6H PRN for cough, tightness in chest, #1 INHALER 0 Refills Prov:DANIEL HOLLOWAY MD 12/02/17 Amoxicillin 500 Mg Tab (AMOXICILLIN 500 MG TAB) 500 Mg Tablet, 2 TAB PO TID, #60 TAB 0 Refills Prov:DANIEL HOLLOWAY MD 10/14/18 Diet: Regular Activity: As Tolerated Special Instructions: Take antibiotics as prescribed. Take Mucinex or Guiafenisen for cough and congestion. Follow up with PCP next week regarding pneumonia. Start taking Prontonix for acid reflux. Follow up with gastroenterology as an outpatient. Speech therapy recommends modified barium swallow as an outpatient. Copies to: DANIEL HOLLOWAY MD; ZEESHAN GONZALEZ DNP, DIAL EQUIPMENT ENGINEER-BC ; Venous Thromboembolism Antithrombotics Is Pt On Any Antithrombotics?: Yes TAPAN HERNANDEZP Oct 29, 2018 08:59
[2018-10-29] MEDS ORDERED: PANT40TA65 PO (09:01)
[2018-10-29 15:12] VITALS: BP 140/68
== END 2018-10-29 16:05 | disposition home or self-care (01) | DRG 195 ==
LOC: ER 14:43 → MED 17:28
PROVIDERS: ADMIT Internal Medicine; ATTEND Internal Medicine
DX: J18.9 Pneumonia, unspecified organism (principal); R09.02 Hypoxemia; I10 Essential (primary) hypertension; E87.5 Hyperkalemia; D75.1 Secondary polycythemia; K21.9 Gastro-esophageal reflux disease without esophagitis; Z86.73 Personal history of transient ischemic attack (TIA), and cerebral infarction without residual deficits; Z88.5 Allergy status to narcotic agent; Z85.820 Personal history of malignant melanoma of skin; Z90.710 Acquired absence of both cervix and uterus; M85.80 Other specified disorders of bone density and structure, unspecified site
CPT/HCPCS: 36415; 71046; 71275; 82040; 82247; 82310; 82374; 82435; 82565; 82947; 83605; 83880; 84075; 84132; 84155; 84295; 84450; 84460; 84484; 84520; 85025; 85379; 93005; 94640; 96365; 99285; J0456; J0696; J1650; J3490; J7030; J7050; J7613; Q9967

== ENCOUNTER → 2018-11-08 | Outpatient (CLI) | payer MEDICARE, OTHER ==
[2018-10-28 13:29] VITALS: BMI 23.5
[~2018-11-08] MED LIST changes: +ALBU2.5V36 INH; +AMLO2.5T75 PO; +CEF300 PO; +DOXY-179 PO; +PANT40TA65 PO; +PRED-1 PO; -ROS10 PO; +ROSU10TA PO
--- NOTE | 2018-11-08 10:56 | EKG ---
FACILITY: [facility] PATIENT NAME: LISA GREGORY : [id number] MR: [id number] V: [id number] EXAM DATE: ORDERING PHYSICIAN: BENEDICT ARNETT TECHNOLOGIST: DYANA Test Reason : CHESTPAIN Blood Pressure : / mmHG Vent. Rate : 082 BPM Atrial Rate : 082 BPM P-R Int : 150 ms QRS Dur : 080 ms QT Int : 362 ms P-R-T Axes : 068 047 052 degrees QTc Int : 422 ms Sinus rhythm Bigeminal PACs Possible left atrial enlargement Nonspecific ST findings are more prominent then previous EKG Confirmed by JOHN DE JESUS ([id number]) on 11/08/2018 2:55:12 PM Referred By: GERBER Confirmed By:JOHN DE JESUS
[2018-11-08 11:07] LABS: PLATELET COUNT, AUTOMATED 301 K/uL (150-450)
--- NOTE | 2018-11-08 11:31 | RADIOLOGY IMAGING REPORT ---
FACILITY: [facility] [place] PATIENT NAME: Nhi Chua : 1940 MR: [id number] V: [id number] EXAM DATE: ORDERING PHYSICIAN: BENEDICT ARNETT TECHNOLOGIST: Location: [facility] [place] Patient: Nhi Chua : 1940 Visit/Account:[id number] Date of Sevice: 11/08/2018 2 VIEWS CHEST INDICATION: Left-sided chest pain. Cough and shortness of breath. COMPARISON: 10/27/2018. FINDINGS: Cardiomediastinal silhouette and pulmonary vessels within normal limits. Leadless pacemaker. There is no focal infiltrate or lobar consolidation. There is no pneumothorax or pleural effusion. There is persistent but mildly improved diffuse interstitial prominence seen in both lungs. No discre te nodule. Upper abdomen is unremarkable. No acute bony abnormality. IMPRESSION: 1. Mild improvement in the diffuse bilateral interstitial prominence without consolidation. This coul d be secondary to improving pneumonitis or edema. Cannot exclude underlying chronic interstitial lung disease. Report Dictated By: Campbell Duran at 11/08/2018 11:24 AM Report E-Signed By: Campbell Duran at 11/08/2018 11:26 AM WSN:[id number]
== END ==
LOC: LAB 10:38
PROVIDERS: ATTEND Emergency Medicine
DX: I49.49 Other premature depolarization (principal); J18.9 Pneumonia, unspecified organism; R07.9 Chest pain, unspecified
CPT/HCPCS: 36415; 71046; 82310; 82374; 82435; 82565; 82947; 83880; 84132; 84295; 84484; 84520; 85025; 85379; 86140

== ENCOUNTER → 2018-12-03 | Outpatient (CLI) | payer MEDICARE, OTHER ==
[2018-10-28 13:29] VITALS: BMI 23.5
--- NOTE | 2018-12-03 16:53 | RADIOLOGY IMAGING REPORT ---
[place] [facility] [place]: Nhi Chua : 1940 MR: [id number] V: [id number] EXAM DATE: ORDERING PHYSICIAN: ZEESHAN GONZALEZ TECHNOLOGIST: Location: [facility] [place] Patient: Nhi Chua : 1940 Visit/Account:[id number] Date of Sevice: 12/03/2018 2 VIEWS CHEST INDICATION: Shortness of breath COMPARISON: November 08, 2018 FINDINGS: Cardiomediastinal silhouette: Heart size within normal limits. List pacemaker overlies left chest. Lungs: Interstitial prominence continues to decrease. No new pulmonary abnormalities. There is no pneumothorax or pleural effusion. Bones and soft tissues: Stable IMPRESSION: 1. Continued improvement of the appearance of the pulmonary interstitium. No new lung abnormality Report Dictated By: Campbell Navarro MD at 12/03/2018 4:48 PM Report E-Signed By: Campbell Navarro MD at 12/03/2018 4:49 PM WSN:[id number]
== END ==
LOC: RAD 15:52
PROVIDERS: ATTEND Nurse Practitioner Primary Care
DX: R91.8 Other nonspecific abnormal finding of lung field (principal); Z95.0 Presence of cardiac pacemaker
CPT/HCPCS: 71046

== ENCOUNTER → 2018-12-16 | Outpatient (CLI) | payer MEDICARE, OTHER ==
[2018-10-28 13:29] VITALS: BMI 23.5
--- NOTE | 2018-12-16 10:43 | RADIOLOGY IMAGING REPORT ---
FACILITY: [facility] PATIENT NAME: Nhi Chua : 1940 MR: [id number] V: [id number] EXAM DATE: ORDERING PHYSICIAN: BENEDICT ARNETT TECHNOLOGIST: Location: [facility] Patient: Nhi Chua : 1940 Visit/Account:[id number] Date of Sevice: 12/16/2018 CHEST PA LAT History: Pneumonia FINDINGS: Comparison studies: Comparison radiograph 12/03/2018 and 11/08/[address] scan 10/27/2018 Tubes and Lines: None. Lungs and pleura: Equivocal findings for subtle increased pulmonary interstitial opacities in irene rison to the previous exam. There is no focal consolidation or pleural effusions. Mediastinum: normal. Cardiac silhouette: normal . Osseous structures: Unremarkable for age . Additional findings: Implanted electronic device anterior chest wall unchanged IMPRESSION: Equivocal findings for recurrent mild pneumonitis. This requires correlation clinically Report Dictated By: Corky Willett MD at 12/16/2018 10:35 AM Report E-Signed By: Corky Willett MD at 12/16/2018 10:38 AM WSN:[email or web address]
== END ==
LOC: RAD 08:59
PROVIDERS: ATTEND Emergency Medicine
DX: J18.9 Pneumonia, unspecified organism (principal)
CPT/HCPCS: 71046

== ENCOUNTER 2018-12-21 10:55 | Outpatient (RCR) | payer MEDICARE, OTHER ==
[2018-10-28 13:29] VITALS: BMI 23.5
--- NOTE | 2018-12-22 09:18 | RADIOLOGY IMAGING REPORT ---
FACILITY: [facility] PATIENT NAME: Nhi Chua : 1940 MR: [id number] V: [id number] EXAM DATE: ORDERING PHYSICIAN: KATERIN MILTON TECHNOLOGIST: Location: [facility] - [place] Patient: Nhi Chua : 1940 Visit/Account:[id number] Date of Sevice: 12/22/2018 CT CHEST (CONTRAST) History: Abnormal chest CT follow-up TECHNIQUE: Contiguous axial images were performed through the chest to the level of the adrenal gla nds following the administration of IV contrast. Coronal and sagittal reformatting was also perform ed.Dose Lowering Technique One of the following dose optimization techniques was utilized in the performance of this exam: Autom ated exposure control; adjustment of the mA and/or kV according to the patient's size; or use of an i terative reconstruction technique. Specific details can be referenced in the facility's radiology C T exam operational policy. Contrast: 75 mL Isovue-370 COMPARISON STUDIES: CTA chest October 27 2018. Lungs / Pleura: There has been marked improvement of the multiple patchy interstitial opacities thr oughout the lungs. Subtle peripheral opacities do remain to a much lesser extent in the upper lobes bilaterally including the lingula, right middle lobe and right lower lobe. This likely represents an improving infectious/inflammatory process. There is no evidence of pleural effusions. Mediastinum/nodes: There is some partial improvement of the hilar and mediastinal adenopathy. The l argest AP window lymph node now measures 1.9 x 1.4 cm. Previously measuring 2.3 x 1.5 cm. The previously 2.3 x 1.5 cm right hilar lymph node now measures 2 x 1.2 cm.. The largest left hilar lymph node now measures 1.8 x 1.4 cm previously measuring 2.1 x 1.9 cm Heart and vessels: There mild atherosclerotic calcifications in the thoracic aorta Musculoskeletal / Body wall: Again noted is a 1.1 x 0.7 cm soft tissue nodule in the inferior right breast. Thyroid is heterogeneous. Hypoattenuating nodule inferior left lobe measuring 8 mm again s een. There are spondylotic changes in the thoracic spine 8 mm round lucency in the mid L1 vertebral body appears stable Upper abdomen: Small hiatal hernia IMPRESSION: There is been marked improvement of the multiple patchy interstitial opacities throughout the lungs. Subtle peripheral opacities do remain as described above although this likely represents an improvin g infectious/inflammatory process. There is been partial improvement of the hilar and mediastinal adenopathy. 1.1 x 0.7 cm soft tissue nodule inferior right breast. This is stable by prior mammogram of March 09, 2018 Additional chronic findings as described Report Dictated By: Radha Awan MD at 12/22/2018 8:53 AM Report E-Signed By: Radha Awan MD at 12/22/2018 9:13 AM WSN:[email or web address]
[2019-01-14] MEDS ORDERED: METO25TA23 PO (14:48)
== END 2018-12-22 18:00 | disposition home or self-care (01) ==
LOC: CT 10:55 → EDSTATUS 12-22 10:55 → CT 12-22 18:00
PROVIDERS: ATTEND Internal Medicine
DX: Z01.812 Encounter for preprocedural laboratory examination (principal); R93.89 Abnormal findings on diagnostic imaging of other specified body structures
CPT/HCPCS: 36415; 71260; 82565; Q9967

== ENCOUNTER 2018-12-30 07:32 | Day surgery (SDC) | payer MEDICARE, OTHER ==
[2018-10-28 13:29] VITALS: Ht 168.9 cm; Wt 55.3 kg
[2018-12-30] VITALS (7 sets, daily range): BP systolic 90–152; BP diastolic 46–71
[~2018-12-30] VITALS: Ht 168.9 cm; Wt 55.3 kg
[2018-12-30] MEDS ORDERED: LIDOCAINE/SOD BICARB 8.4% SYR ID ONE (08:00)
[2018-12-30] MEDS ORDERED: NORMOSOL R SOLN(*) 1000 ML BAG 1,000 ML IV PRN (08:00)
[2018-12-30] MEDS ORDERED: PROPOFOL EMUL(*) 10MG/ML 20 ML 40 ML ONE (08:52)
[2018-12-30] MEDS ORDERED: PROPOFOL EMUL(*) 10MG/ML 20 ML 20 ML ONE (10:46)
--- NOTE | 2018-12-30 14:44 | NUR ---
1118- PT. RECEIVED FROM OR VIA STRETCHER WITH THE SIDERAILS UP. SBAR RECEIVED FROM ALLYSSA MASTERS AND DR. GAMBOA. SEE ADMISSIONS ASSESSMENT. 1139- PT. RETURNED TO ROOM AIR. 1140- PT. GIVEN HOT TEA. 1204- PT. RETURNED TO 2 LPM NC BECAUSE HER ROOM AIR SATURATION TO 84%. 1217- PT. RETURNED TO ROOM AIR. 1226- ORTHOSTATICS PREFORMED AND PT. STATES THAT SHE IS SLIGHTLY LIGHTHEADED BUT STATES THAT SHE USUALLY GETS ORTHOSTATIC VERTIGO. 1229- PT. BP DROPPED SOME WHEN STANDING SO PT SAT BACK DOWN AND I GAVE HER THE REST OF THE FLUIDS A BOLUS. 1237- BOLUS COMPLETED AND STANDING BP REPEATED. PT. BP HELD STEADY. 1240- PT. GETTING DRESSED. 1247- IV TAKEN OUT AND PRESSURE DRESSING APPLIED. PT. WANTED TO CHECK HER O2 AGAIN BECAUSE SHE SAID THAT SHE FELT SOB SO PULSE OX APPLIED AND PT. O2 AT 90% WITH A GOOD WAVEFORM. PT. HAD PNEUMONIA ABOUT 8 WEEKS PRIOR AND STATES THAT SHE GET SOB SINCE HAVING PNEUMONIA. I ENCOURAGED HER TO USE HER PREVIOUSLY PRESCRIBED O2 AT HOME IF SHE FELT SHE NEEDED IT DURING THE DAY. 1253- PT. ACCOMPANIED OUT TO DAUGHTERS VEHICLE VIA WHEELCHAIR.
== END 2018-12-30 12:53 | disposition home or self-care (01) ==
LOC: OR 07:32
PROVIDERS: ATTEND Internal Medicine Gastroenterology
DX: K64.8 Other hemorrhoids (principal); K57.30 Diverticulosis of large intestine without perforation or abscess without bleeding; K63.5 Polyp of colon; K20.9 Esophagitis, unspecified; K22.2 Esophageal obstruction; K44.9 Diaphragmatic hernia without obstruction or gangrene; K29.70 Gastritis, unspecified, without bleeding; Z86.010 Personal history of colon polyps
CPT/HCPCS: 00813; 43239; 43248; 45380; 45385; 88305; 88313; 88342; J2704

== ENCOUNTER → 2019-01-07 | Outpatient (CLI) | payer MEDICARE, OTHER ==
[2018-10-28 13:29] VITALS: BMI 23.5
== END ==
LOC: RESP 02:45
PROVIDERS: ATTEND Internal Medicine
DX: R05 Cough (principal)
CPT/HCPCS: 94060; 94726; 94729

== ENCOUNTER → 2019-03-14 | Outpatient (CLI) | payer MEDICARE, OTHER ==
[2018-10-28 13:29] VITALS: BMI 23.5
[~2019-03-14] MED LIST changes: -OMEP-125 PO; +OMEP-126 PO
--- NOTE | 2019-03-14 15:10 | RADIOLOGY IMAGING REPORT ---
FAC[place] [facility] [place]IENT NAME: LISA GREGORY : [id number] MR: [id number] V: [id number] EXAM DATE: [id number] ORDERING PHYSICIAN: BENEDICT ARNETT TECHNOLOGIST: Ayse Pelaez PROCEDURE: BILATERAL DIGITAL SCREENING MAMMOGRAM WITH CAD ASSISTED INTERPRETATION & 3D TOMOSYNTHESIS. REASON FOR STUDY: Screening. COMPARISON: 03/09/2018, 12/29/2016, 10/02/2015. VIEWS OBTAINED: 2D & 3D full field CC & MLO projections. BREAST DENSITY: Scattered fibroglandular densities. MAMMOGRAM FINDINGS: In the Right retroareolar region, there is a stable well circumscribed mass unchanged from prior exams. Benign calcifications in the Right breast are stable. No dominant mass or suspicious microcalcifications on the Right. The Left breast is stable. NO dominant mass or suspicious microcalcifications on the Left. Subcutaneous loop recorder in the medial Left breast is unchanged. IMPRESSION: BIRADS 2: Benign finding. DIAGNOSTIC CATEGORY 2--BENIGN FINDING. RECOMMENDATIONS: ROUTINE MAMMOGRAM AND CLINICAL EVALUATION. Dictated by: Campbell Ramírez M.D. on 03/14/2019 at 13:11 Transcribed by: CHRISTAL on 03/14/2019 at 14:35 Approved by: Campbell Ramírez M.D. on 03/14/2019 at 15:06 [facility]
== END ==
LOC: MAMO 00:53
PROVIDERS: ATTEND Emergency Medicine
DX: Z12.31 Encounter for screening mammogram for malignant neoplasm of breast (principal)
CPT/HCPCS: 77063; 77067

== ENCOUNTER → 2019-03-21 | Outpatient (CLI) | payer MEDICARE, OTHER ==
[2018-10-28 13:29] VITALS: BMI 23.5
[~2019-03-21] MED LIST changes: +FLUT1DIS28 IH; +MONT10TA PO
--- NOTE | 2019-03-21 13:57 | EKG ---
FACILITY: [facility] - [place] PATIENT NAME: LISA GREGORY : [id number] MR: [id number] V: [id number] EXAM DATE: ORDERING PHYSICIAN: BENEDICT ARNETT TECHNOLOGIST: JEF GREER Test Reason : Blood Pressure : / mmHG Vent. Rate : 068 BPM Atrial Rate : 068 BPM P-R Int : 178 ms QRS Dur : 094 ms QT Int : 416 ms P-R-T Axes : 062 046 055 degrees QTc Int : 442 ms Sinus rhythm with marked sinus arrhythmia Otherwise normal ECG No previous ECGs available Referred By: GERBER Confirmed By:
== END ==
LOC: RESP 13:17
PROVIDERS: ATTEND Emergency Medicine
DX: Z02.9 Encounter for administrative examinations, unspecified (principal)